=== PATIENT | female | born 1995 | race Caucasian/White ===

== ENCOUNTER 2017-10-07 11:59 | Emergency (ER) | payer OTHER, SELFPAY ==
[2017-10-07 12:21] VITALS: BP 149/85; PULSE 80; RESP 18; TEMP 36.6; O2SAT 100; BMI 40.9
--- NOTE | 2017-10-07 12:23 | XR_ITS ---
XR forearm RT 2V COMPARISON: None HISTORY: Right forearm pain after falling on ice TECHNIQUE: AP and lateral view FINDINGS: The radius and ulna appear intact with no evidence of fracture. The soft tissues are normal. IMPRESSION: Negative right forearm
--- NOTE | 2017-10-07 12:25 | XR_ITS ---
XR wrist RT min 3V COMPARISON: Right hand 08/28/2008 HISTORY: Right wrist pain after falling on I TECHNIQUE: AP lateral and oblique views FINDINGS: The distal radius and ulna appear intact with no evidence of recent or old fracture. There is a slightly negative ulnar variance a normal variation. The carpal bones appear intact. The soft tissues are normal. IMPRESSION: Right wrist negative for fracture
--- NOTE | 2017-10-07 12:26 | XR_ITS ---
XR elbow RT min 3V COMPARISON: None HISTORY: Right elbow pain after falling on TECHNIQUE: 3 views right elbow FINDINGS: The supracondylar humerus appears normal. The radial head is intact and the olecranon fossa appears normal. Is no abnormal fat pad sign. IMPRESSION: Negative right elbow
--- NOTE | 2017-10-07 12:59 | HMH.EDUTC ---
[facility] [place]ression: Sprain of right elbow Qualifiers: Encounter type: initial encounter Qualified Code(s): S53.401A - Unspecified sprain of right elbow, initial encounter Disposition: Home, Self-Care Condition on Discharge: Good Instructions: DI for Elbow Sprain, How To Perform RICE (Rest, Ice, Compress, Elevate), How to Use a Sling Additional Instructions: * use as tolerated. If pain, stop what you are doing. * Rest * ice 15-20 mins 3-4 times a day * Sling for support and swelling unless in shower. Be sure not too tight but not too loose either * Elevate as discussed as much as possible to help reduce swelling and therefore, pain * Ibuprofen every 6 hours as needed for pain and inflammation. If you need something more, you can take tylenol every 4 hours as needed as long as your primary care provider has told you it is ok to take both. Be sure whatever you take is an approved medication s/p your surgery. if they told you gelcaps. Advil gelcaps would help pain and inflammation Referrals: Vishal Hay MD [Family Provider] - (Follow up IMMEDIATELY for new or worsening symptoms OR no noticeable improvement over the next 3-5 days) Time of Disposition: 13:52 Medical Decision Making Vital Signs: 10/07/17 12:21 Temperature 97.9 F Temperature Source Oral Pulse Rate [Left Brachial] 80 Respiratory Rate 18 Blood Pressure [Left Arm] 149/85 Blood Pressure Mean [Left Arm] 106 Blood Pressure Source [Left Arm] Automatic Cuff Blood Pressure Position [Left Arm] Sitting 02 Sat by Pulse Oximetry 100 Oxygen Delivery Method Room Air - Radiology Data #1 Image(s): Elbow, Forearm, Wrist Image Reviewed: Yes I reviewed the patient's radiology image, Yes I have reviewed radiologist's interpretation, Yes I reviewed the patient's radiology image w/the ED provider Preliminary Findings: Normal/NAD (Discussed w/ Dr. Langston) - Asher Inquiry Pt receiving controlled substance: No [facility] [place] - General Stated complaint: AO fell injury to right arm Time Seen by Provider: 10/07/17 12:30 Mode of Arrival: Ambulatory Source of Information: Patient Limitations: No Limitations Description of Symptoms (Recalled from Triage Doc. by RN): pt c/o rt forearm pain following a fall HEENT Symptoms (Recalled from RN notes): No Resp Symptoms (Recalled from RN notes): No Skin Symptoms (Recalled from RN notes): No MS Symptoms (Recalled from RN notes): Yes (rt arm pain) Functional Status (Recalled from RN notes): n/a - History of Present Illness Provider Complaint: c/o pain right arm since falling on ice this morning. States she caught herself w/ right palm down on the ground and felt something pop near elbow. Pain the worse in proximal FA but radiating to elbow and down to wrist. Worse with movement. Hasn't taken or tried anything for pain since fall d/t hx gastric bypass months ago and can only take certain medication and certain types of pills. I don't want to risk messing my stomach up so I tough it out . Declines offer to treat pain here in [facility] - Related Data Allergies Allergy/AdvReac Type Severity Reaction Status Date / Time povidone-iodine Allergy Unknown Verified 10/07/17 12:30 [From BETADINE] procaine [From NOVOCAIN] Allergy Unknown Verified 10/07/17 12:30 lidocaine Allergy Verified 10/07/17 12:30 - Worker's Comp Is this a Worker's Comp case?: No [facility] History I have reviewed the patient's past medical history: Yes Medical History: Reports:: Gastroesophageal Reflux Disease Denies:: Cancer, Diabetes Mellitus Type 1, Diabetes Mellitus Type 2, Hypertension, MRSA Other Surgeries: Yes: Other (gastric bypass 07/2017) Amputation: No Fractures: No - *Social History Smoking Status: Never smoker Alcohol Intake: never - Psychiatric History Expresses thoughts of harming self/others: None Suicide Plan Description: No Plan ROS Obtained: Yes Systems reviewed as appropriate & no additional complaints - Cardiov
--- NOTE | 2017-10-07 13:03 | ED_ITS ---
[facility] [place]: Sprain of right elbow Qualifiers: Encounter type: initial encounter Qualified Code(s): S53.401A - Unspecified sprain of right elbow, initial encounter Disposition: Home, Self-Care Condition on Discharge: Good Instructions: DI for Elbow Sprain, How To Perform RICE (Rest, Ice, Compress, Elevate), How to Use a Sling Additional Instructions: * use as tolerated. If pain, stop what you are doing. * Rest * ice 15-20 mins 3-4 times a day * Sling for support and swelling unless in shower. Be sure not too tight but not too loose either * Elevate as discussed as much as possible to help reduce swelling and therefore , pain * Ibuprofen every 6 hours as needed for pain and inflammation. If you need something more, you can take tylenol every 4 hours as needed as long as your primary care provider has told you it is ok to take both. Be sure whatever you take is an approved medication s/p your surgery. if they told you gelcaps. Advil gelcaps would help pain and inflammation Referrals: Vishal Hay MD [Family Provider] - (Follow up IMMEDIATELY for new or worsening symptoms OR no noticeable improvement over the next 3-5 days) Time of Disposition: 13:52 Medical Decision Making Vital Signs: 10/07/17 12:21 Temperature 97.9 F Temperature Source Oral Pulse Rate [Left Brachial] 80 Respiratory Rate 18 Blood Pressure [Left Arm] 149/85 Blood Pressure Mean [Left Arm] 106 Blood Pressure Source [Left Arm] Automatic Cuff Blood Pressure Position [Left Arm] Sitting 02 Sat by Pulse Oximetry 100 Oxygen Delivery Method Room Air - Radiology Data #1 Image(s): Elbow, Forearm, Wrist Image Reviewed: Yes I reviewed the patient's radiology image, Yes I have reviewed radiologist's interpretation, Yes I reviewed the patient's radiology image w/the ED provider Preliminary Findings: Normal/NAD (Discussed w/ Dr. Langston) - Asher Inquiry Pt receiving controlled substance: No [facility] [place] - General Stated complaint: AO fell injury to right arm Time Seen by Provider: 10/07/17 12:30 Mode of Arrival: Ambulatory Source of Information: Patient Limitations: No Limitations Description of Symptoms (Recalled from Triage Doc. by RN): pt c/o rt forearm pain following a fall HEENT Symptoms (Recalled from RN notes): No Resp Symptoms (Recalled from RN notes): No Skin Symptoms (Recalled from RN notes): No MS Symptoms (Recalled from RN notes): Yes (rt arm pain) Functional Status (Recalled from RN notes): n/a - History of Present Illness Provider Complaint: c/o pain right arm since falling on ice this morning. States she caught herself w/ right palm down on the ground and felt something pop near elbow. Pain the worse in proximal FA but radiating to elbow and down to wrist. Worse with movement. Hasn't taken or tried anything for pain since fall d/t hx gastric bypass months ago and can only take certain medication and certain types of pills. I don't want to risk messing my stomach up so I tough it out . Declines offer to treat pain here in [facility] - Related Data Allergies Allergy/AdvReac Type Severity Reaction Status Date / Time povidone-iodine Allergy Unknown Verified 10/07/17 12:30 [From BETADINE] procaine [From NOVOCAIN] Allergy Unknown Verified 10/07/17 12:30 lidocaine Allergy Verified 10/07/17 12:30 - Worker's Comp Is this a Worker's Comp case?: No [facility] History I have reviewed the patient's pas
[2017-10-07 14:21] VITALS: BP 149/85; PULSE 80; RESP 18; TEMP 36.6; O2SAT 100
== END 2017-10-07 14:23 | disposition home or self-care (01) ==
PROVIDERS: Emergency Provider Nurse Practitioner Family; Family Provider Family Medicine
DX: S53.401A Unspecified sprain of right elbow, initial encounter (principal); W00.0XXA Fall on same level due to ice and snow, initial encounter; Y93.01 Activity, walking, marching and hiking; Y92.9 Unspecified place or not applicable; Z98.84 Bariatric surgery status
CPT/HCPCS: 73080; 73090; 73110; 99203; 99283

== ENCOUNTER → 2018-01-11 08:27 | Outpatient (CLI) | payer OTHER, SELFPAY ==
[2018-01-12 11:06] LABS: Vitamin D 25 Hydroxy 38.4 ng/mL (30.0-100.0)
[2018-01-12 21:04] LABS: Parathyroid Hormone Intact 27 pg/mL (15-65)
== END ==
PROVIDERS: Visit Provider Surgery
DX: E55.9 Vitamin D deficiency, unspecified (principal)
CPT/HCPCS: 36415; 82652; 83970

== ENCOUNTER → 2018-06-11 10:20 | Outpatient (CLI) | payer OTHER, SELFPAY ==
--- NOTE | 2018-06-11 10:25 | CT_ITS ---
CT abdomen pelvis wo/w con CLINICAL INDICATION: Painless hematuria ITS.REASON: HEMATURIA ORDERING PHYSICIAN: Harris Roy MD PATIENT AGE: 23 years COMPARISON: 02/10/2015 TECHNIQUE: Axial images obtained without with contrast enhancement. Sagittal and coronal reformats. All CT scans at the facility use one or more dose reduction, viz: automated exposure control, ma/kV adjustment per patient size (including targeted exams where dose is matched to indication, i.e. head), or iterative reconstruction technique. PROCEDURE: Oral Contrast: None IV Contrast: 75 mL [id number]. FINDINGS: No acute finding in the lung bases. A 4 mm noncalcified nodules present in the left lower lobe posteriorly unchanged. Liver, gallbladder, spleen, pancreas, and adrenal glands have an unremarkable appearance. There has been interval gastric bypass with gastrojejunostomy. No renal or ureteral calculi. No renal mass. The readings are normal size shape and position. No hydronephrosis. There is mild thickening of the anterior wall the urinary bladder. This is nonspecific and had a similar appearance on 02/10/1950. No intestinal obstruction or free air. Scattered small lymph nodes are present in the mesentery's and right lower quadrant which are nonspecific. No evidence of appendicitis or diverticulitis. No pelvic mass or focal inflammatory change. Small amount fluid is present in the cul-de-sac nonspecific. The right ovarian cyst at 2 cm. No acute bony anomalies. IMPRESSION: 1. Essentially Negative CT abdomen without and with contrast. 2. No renal or ureteral calculi, hydronephrosis, or renal mass. Minimal thickening of the anterior urinary bladder wall nonspecific and unchanged and may be due to nondistention. 3. 2 cm right ovarian cyst. Minimal amount fluid in the cul-de-sac
== END ==
PROVIDERS: Family Provider Family Medicine; PCP Family Medicine; Visit Provider Urology
DX: R31.9 Hematuria, unspecified (principal)
CPT/HCPCS: 74170; Q9967

== ENCOUNTER 2019-04-18 18:35 | Outpatient (CLI) | payer OTHER, SELFPAY ==
[2019-04-18 19:02] VITALS: BMI 36.2
[2019-04-18 19:16] LABS: Microscopic, Urine URINE MICROSCOPIC (MICROSCOPIC)
[2019-04-18 19:17] LABS: Appearance,Urine CLEAR (Clear); Bilirubin,Urine Negative (Negative); Blood, Urine Negative (Negative); Color,Urine YELLOW (Yellow); Glucose,Urine (UA) Negative (Negative); Ketones,Urine 2+ (Negative); Leukocyte Esterase,Urine Negative (Negative); Nitrate,Urine Negative (Negative); PH,Urine 8.5 (5.0-8.5); Protein,Urine Negative (Negative); Specific Gravity, Urine 1.015 (1.005-1.030)
[2019-04-18 19:20] VITALS: BP 117/69; PULSE 90; RESP 18; TEMP 36.9; O2SAT 98; BMI 37.4
[2019-04-18 19:27] LABS: Amphetamine/Metha Screen,Urine Negative ng/mL (<1000); Barbiturates Screen,Urine Negative ng/mL (<200); Benzodiazepines Screen,Urine Negative ng/mL (<200); Cannabinoid Screen,Urine Negative ng/mL (<50); Cocaine Screen,Urine Negative ng/mL (<300); Methadone Screen,Urine Negative ng/mL (<300); Opiate Screen,Urine Negative ng/mL (<300); Phencyclidine Screen,Urine Negative ng/mL (<25)
[2019-04-18 19:55] LABS: Bacteria,Urine Trace /lpf; WBC,Urine Occasional #/hpf (0-3)
== END 2019-04-18 21:15 | disposition home or self-care (01) ==
LOC: OBOUT 18:37 → OB 18:38
PROVIDERS: PCP Family Medicine; Visit Provider Obstetrics & Gynecology
DX: O47.03 False labor before 37 completed weeks of gestation, third trimester (principal); Z3A.35 35 weeks gestation of pregnancy
CPT/HCPCS: 59025; 80305; 81001; 96360; 96372

== ENCOUNTER 2020-05-21 14:30 | Outpatient (CLI) | payer OTHER, SELFPAY ==
[2020-05-21 14:55] VITALS: BP 120/61; PULSE 87; RESP 18; TEMP 36.6; O2SAT 100
[2020-05-21 15:25] VITALS: BP 110/60; PULSE 84; RESP 18
== END 2020-05-21 15:40 | disposition home or self-care (01) ==
LOC: INF 14:36
PROVIDERS: Visit Provider Family Medicine
DX: O99.019 Anemia complicating pregnancy, unspecified trimester (principal)
CPT/HCPCS: 96365; J1756

== ENCOUNTER 2020-05-25 08:35 | Outpatient (CLI) | payer OTHER, SELFPAY ==
[2020-05-25 08:50] VITALS: BP 103/71; PULSE 93; RESP 18; TEMP 36.4; O2SAT 99
[2020-05-25 09:20] VITALS: BP 108/69; PULSE 91; RESP 18; O2SAT 99
[2020-05-25 09:35] VITALS: BP 111/67; PULSE 91; RESP 18; O2SAT 98
== END 2020-05-25 09:35 | disposition home or self-care (01) ==
LOC: INF 08:35
PROVIDERS: Visit Provider Family Medicine
DX: O99.019 Anemia complicating pregnancy, unspecified trimester (principal); D50.8 Other iron deficiency anemias
CPT/HCPCS: 96365; J1756

== ENCOUNTER 2020-05-28 14:00 | Outpatient (CLI) | payer OTHER, SELFPAY ==
[2020-05-28 14:35] VITALS: BP 119/88; PULSE 99; RESP 18; TEMP 36.7
[2020-05-28 15:10] VITALS: BP 127/65; PULSE 80; RESP 18
== END 2020-05-28 15:20 | disposition home or self-care (01) ==
LOC: INF 14:27
PROVIDERS: Visit Provider Family Medicine
DX: O99.011 Anemia complicating pregnancy, first trimester (principal); D50.9 Iron deficiency anemia, unspecified
CPT/HCPCS: 96365; J1756

== ENCOUNTER 2020-06-25 11:13 | Outpatient (CLI) | payer OTHER, SELFPAY ==
[2020-06-25 11:38] VITALS: BP 156/80; PULSE 104; RESP 18; TEMP 36.7; O2SAT 100; BMI 36.3
[2020-06-25 12:16] LABS: Appearance,Urine CLEAR (Clear); Bilirubin,Urine Negative (Negative); Blood, Urine Negative (Negative); Color,Urine YELLOW (Yellow); Glucose,Urine (UA) Negative (Negative); Ketones,Urine Negative (Negative); Leukocyte Esterase,Urine TRACE (Negative); Microscopic, Urine URINE MICROSCOPIC (MICROSCOPIC); Nitrate,Urine POSITIVE (Negative); PH,Urine 7.5 (5.0-8.5); Protein,Urine Negative (Negative); Specific Gravity, Urine 1.015 (1.005-1.030)
[2020-06-25 12:27] LABS: Fetal Fibronectin (Rapid) Negative (Negative)
[2020-06-25 12:29] LABS: RBC,Urine Occasional #/hpf (0-3)
[2020-06-25 12:33] LABS: Barbiturates Screen,Urine Negative ng/ml (<200); Benzodiazepines Screen,Urine Negative ng/ml (<200)
[2020-06-25 12:34] LABS: Amphetamine/Metha Screen,Urine Negative ng/ml (<1000)
[2020-06-25 12:35] LABS: Cannabinoid Screen,Urine Negative ng/ml (<50); Methadone Screen,Urine Negative ng/ml (<300)
[2020-06-25 12:36] LABS: Cocaine Screen,Urine Negative ng/ml (<300)
[2020-06-25 12:37] LABS: Opiate Screen,Urine Negative ng/ml (<300); Phencyclidine Screen,Urine Negative ng/ml (<25)
== END 2020-06-25 12:45 | disposition home or self-care (01) ==
LOC: OBOUT 11:14 → OB 11:14
PROVIDERS: PCP Family Medicine; Visit Provider Obstetrics & Gynecology
DX: O47.03 False labor before 37 completed weeks of gestation, third trimester (principal); Z3A.31 31 weeks gestation of pregnancy
CPT/HCPCS: 59025; 80305; 81001; 82731; 96360

== ENCOUNTER → 2021-04-13 08:03 | Outpatient (CLI) | payer OTHER, SELFPAY ==
[2021-04-13 08:54] LABS: Basophils # 0.1 K/mm3 (0-0.2); Basophils % 0.8 % (0.1-2.0); Eosinophils # 0.1 K/mm3 (0.0-0.4); Eosinophils % 0.9 % (0.1-12.0); Hematocrit 24.3 % (37.0-47.0); Lymphocytes # 1.4 K/mm3 (0.7-4.5); Lymphocytes % 21.5 % (10-50); Mean Corpuscular Hemoglobin 18.1 pg (27.0-31.2); Mean Corpuscular Volume 62.3 fl (81-99); Mean Platelet Volume 8.5 fl (7.4-10.4); Monocytes # 0.3 K/mm3 (0.1-1.0); Neutrophils # 4.7 K/mm3 (1.8-7.8); Neutrophils % 71.8 % (37.0-80.0); Platelet Count 258 K/mm3 (142-424); Red Cell Distribution Width 15.8 % (11.5-17.5); Reticulocyte % (Auto) 1.6 % (0.9-3.2); White Blood Count 6.5 K/mm3 (4.8-10.8)
[2021-04-13 09:15] LABS: Iron 18 ug/dL (37-170)
[2021-04-13 09:24] LABS: Total Iron Binding Capacity 485 ug/dL (265-497)
[2021-04-13 09:35] LABS: Hemoglobin 7.1 g/dL (12.2-16.2)
[2021-04-13 10:34] LABS: Vitamin B12 300 pg/mL (239-931)
[2021-04-13 10:39] LABS: Folate 5.57 ng/mL
[2021-04-15 08:06] LABS: Peripheral Smear Review Scanned Result
== END ==
PROVIDERS: Visit Provider Nurse Practitioner
DX: D64.9 Anemia, unspecified (principal)
CPT/HCPCS: 36415; 82607; 82746; 83540; 83550; 85025; 85044

== ENCOUNTER 2021-04-15 08:33 | Outpatient (CLI) | payer OTHER, SELFPAY ==
[2021-04-15 08:55] VITALS: BP 122/75; PULSE 87; RESP 18; O2SAT 100
[2021-04-15 09:15] VITALS: BP 124/73; PULSE 79; RESP 18
== END 2021-04-15 09:15 | disposition home or self-care (01) ==
LOC: INF 08:33
PROVIDERS: Visit Provider Nurse Practitioner
DX: D50.8 Other iron deficiency anemias (principal)
CPT/HCPCS: 96374; Q0138

== ENCOUNTER 2021-04-15 13:09 | Emergency (ER) | payer OTHER, SELFPAY ==
[2021-04-15] VITALS (42 sets, daily range): BP systolic 112–147; BP diastolic 68–95; PULSE 68–109; RESP 16–20; TEMP 36.7–37.2; O2SAT 97–100; BMI 33.0
--- NOTE | 2021-04-15 13:29 | HMH.EDUTC ---
[facility] [place] Clinical Impression: Hypersensitivity reaction Qualifiers: Encounter type: initial encounter Qualified Code(s): T78.40XA - Allergy, unspecified, initial encounter Disposition: Still a Patient Condition on Discharge: Fair Referrals: Vishal Hay MD [Primary Care Provider] - Medical Decision Making - Medical Records Medical records reviewed: No: I reviewed the patient's medical records. - Asher Inquiry Pt receiving controlled substance: No Vital Signs: 04/15/21 13:28 Temperature 98.1 F Temperature Source Oral Pulse Rate [Left] 102 H Respiratory Rate 20 Blood Pressure [Right Arm] 127/77 Blood Pressure Mean [Right Arm] 93 02 Sat by Pulse Oximetry 100 Medical Decision Narrative: She was transferred to the er due to her chest tightness, wheezing. She could be having an allergic reaction to the iron infusion that she had earlier this morning. [facility] [place] - General Stated complaint: soa iron transfusion 04/15 am Time Seen by Provider: 04/15/21 13:30 - History of Present Illness Provider Complaint: She states that she had an iron infusion this morning here at this hospital. After she was sent home she began having shortness of breath and chest pressure. She has a history of gastric bypass surgery and iron deficiency. She had similar iron infusions last year without having any symptoms like this. - Related Data Home Medications Medication Instructions Recorded Confirmed multivitamin 1 cap PO DAILY 06/05/18 04/15/21 Ascorbic Acid [Vitamin C] 250 mg PO DAILY 04/15/21 04/15/21 Cholecalciferol (Vitamin D3) 2,000 unit PO DAILY 04/15/21 04/15/21 [Vitamin D3 1,000 Unit Cap] Ferrous Sulfate [Ferrous Sulfate 300 mg PO DAILY 04/15/21 04/15/21 300mg/5mL [facility] [place]] Allergies Allergy/AdvReac Type Severity Reaction Status Date / Time povidone-iodine Allergy Unknown mild Verified 04/15/21 13:31 [From BETADINE] swelling procaine [From NOVOCAIN] Allergy Unknown mild Verified 04/15/21 13:31 swelling lidocaine Allergy mild Verified 04/15/21 13:31 swelling [facility] History - Hepatitis A Screen Attestation statement:: This patient has been screened for Hepatitis A risk factors. I have reviewed the patient's past medical history: Yes Medical History: Reports:: Gastroesophageal Reflux Disease(GERD) Denies:: Cancer, Diabetes Mellitus Type 1, Diabetes Mellitus Type 2, Hypertension, Internal Pacemaker, MRSA, Seizures Other Medical History: Reports: Anemia. Denies: Blood Transfusion Reaction Other Surgeries: Yes: Bariatric Surgery, Cholecystectomy, Other (WISDOM TEETH EXTRACTED X4, GASTRIC BYPASS). No: , Pacemaker Amputation: No Fractures: Yes - Social History Smoking Status: Never smoker Alcohol Intake: never Substance Use Type: denies use Occupational Status: employed Housing: house Household Members: spouse, children Family Hx:: Cancer, Diabetes, Heart Attack, Thyroid Disorder, Hypertension, Hyperlipidemia, Asthma ROS Obtained: Yes All systems reviewed & no additional complaints - Constitutional Constitutional: Denies chills, Denies fever(s) - Respiratory Respiratory: Reports as per HPI, Reports cough, Reports wheezing Physical Exam - General General appearance: alert, in no apparent distress - Head Head exam: atraumatic, normocephalic, normal inspection - Eye Eye exam: Present: normal appearance, PERRL, EOMI - ENT ENT exam: Present: normal exam, normal oropharynx, mucous membranes moist, TM's normal bilaterally, normal external ear exam - Neck Neck exam: Present: normal inspection, full ROM, trachea midline. Absent: meningismus, lymphadenopathy - Chest Chest inspection: Present: normal inspection, symmetric chest wall rise. Absent: tenderness - Respiratory Respiratory exam: Present: wheezes. Absent: respiratory distress, stridor, accessory muscle use, prolonged expiratory phase - Cardiovascular Cardiovascular exam: Present: reg
--- NOTE | 2021-04-15 13:41 | ECG_ITS ---
APPROVED REPORT Exam: Resting ECG HR:99 bpm ECG Measurements Heart Rate 99 AXES MA 118 P 49 QRSd 72 QRS 19 QT 342 T 11 QTc 438 Conclusion Normal sinus rhythm Normal ECG Electronically signed by : Santi Aldana, 04/17/2021 15:24:17
--- NOTE | 2021-04-15 13:43 | XR_ITS ---
PROCEDURE: XR CHEST PORTABLE CLINICAL HISTORY: cough COMPARISON: CR CXR CHEST(2 VIEWS-NOT PORTABLE) from 07/19/2013 CR CXR CHEST(2 VIEWS-NOT PORTABLE) from 01/18/2016 CR Chest from 04/18/2019 FINDINGS: The cardiomediastinal silhouette and pulmonary vascularity are within normal limits. The lungs are clear without infiltrates, suspicious nodules, or pleural effusions. No acute bony abnormalities. IMPRESSION: No acute findings. Dictated by: Mady Guevara 04/15/2021 14:03 Mady Guevara in OV 04/15/2021 14:03
[2021-04-15 14:09] LABS: Alanine Aminotransferase 16 U/L (12-78); Albumin Level 4.1 g/dl (3.5-5.0); Albumin/Globulin Ratio 1.4 (1.1-1.8); Alkaline Phosphatase 106 U/L (38-126); Aspartate Amino Transferase 20 U/L (14-36); Bilirubin,Total 1.2 mg/dl (0.2-1.3); Blood Urea Nitrogen 7 mg/dl (7-17); Calcium 9.2 mg/dl (8.4-10.2); Carbon Dioxide 23 mmol/L (22.0-30.0); Chloride 108 mmol/L (98-107); Creatinine Clearance Estimated 221 mL/min (50-200); Estimated Glomerular Filt Rate 149 ml/min (>60); GFR (African American) 180 ML/MIN (>60); Glucose 85 mg/dl (74-100); Sodium 142 mmol/L (136-145); Total Protein,Serum 7.1 g/dl (6.3-8.2)
[2021-04-15 14:12] LABS: Basophils % 0.6 % (0.1-2.0); Eosinophils # 0.1 K/mm3 (0.0-0.4); Eosinophils % 0.9 % (0.1-12.0); Hematocrit 24.2 % (37.0-47.0); Lymphocytes # 1.4 K/mm3 (0.7-4.5); Lymphocytes % 23.7 % (10-50); Mean Corpuscular HGB Conc 29.1 g/dL (31.8-35.4); Mean Corpuscular Hemoglobin 18.2 pg (27.0-31.2); Mean Corpuscular Volume 62.4 fl (81-99); Mean Platelet Volume 8.6 fl (7.4-10.4); Monocytes # 0.4 K/mm3 (0.1-1.0); Monocytes % 5.9 % (1.7-9.3); Neutrophils # 4.2 K/mm3 (1.8-7.8); Platelet Count 206 K/mm3 (142-424); Red Blood Count 3.88 M/mm3 (4.20-5.40); Red Cell Distribution Width 15.8 % (11.5-17.5); White Blood Count 6.1 K/mm3 (4.8-10.8)
[2021-04-15 14:27] LABS: NT Pro Brain Natriuretic Pep. 159 pg/mL (0-125)
[2021-04-15 14:29] LABS: Troponin I < 0.01 ng/ml (0.00-0.034)
--- NOTE | 2021-04-15 19:02 | PC.NURSE ---
Report given to nailing machine feeder nurse Daryl Brito RN. Blood is continuing to transfuse. PT denies any issues at this time.
--- NOTE | 2021-04-15 20:39 | PC.NURSE ---
send post H&H up to lab @ this time
[2021-04-15 21:26] LABS: Hematocrit 30.1 % (37.0-47.0); Hemoglobin 9.3 g/dL (12.2-16.2)
== END 2021-04-15 21:38 | disposition home or self-care (01) ==
LOC: UTC 13:36 → ER 13:39
PROVIDERS: Emergency Provider Emergency Medicine; PCP Family Medicine
DX: T78.40XA Allergy, unspecified, initial encounter (principal); R06.02 Shortness of breath; D50.9 Iron deficiency anemia, unspecified; Z98.84 Bariatric surgery status; K21.9 Gastro-esophageal reflux disease without esophagitis
CPT/HCPCS: 36415; 71045; 80053; 83880; 84484; 85014; 85018; 85025; 86850; 93005; 96365; 96366; 96375; 99283; P9016

== ENCOUNTER → 2021-09-01 20:58 | Outpatient (CLI) | payer OTHER, SELFPAY | PROVIDERS: PCP Family Medicine; Visit Provider Nurse Practitioner | DX: U07.1 COVID-19 (principal) | CPT/HCPCS: C9803; U0003; U0005 ==

== ENCOUNTER → 2021-10-20 10:29 | Outpatient (CLI) | payer OTHER, SELFPAY ==
[2021-10-20 12:18] LABS: HCG,Quantitative 437 mIU/ml (0-5.42)
== END ==
PROVIDERS: PCP Family Medicine; Visit Provider Nurse Practitioner Obstetrics & Gynecology
DX: Z34.90 Encounter for supervision of normal pregnancy, unspecified, unspecified trimester (principal); Z3A.01 Less than 8 weeks gestation of pregnancy
CPT/HCPCS: 36415; 84702

== ENCOUNTER → 2021-10-22 08:47 | Outpatient (CLI) | payer OTHER, SELFPAY ==
[2021-10-22 10:12] LABS: HCG,Quantitative 832 mIU/ml (0-5.42)
== END ==
PROVIDERS: Visit Provider Nurse Practitioner Obstetrics & Gynecology
DX: Z34.90 Encounter for supervision of normal pregnancy, unspecified, unspecified trimester (principal); Z3A.01 Less than 8 weeks gestation of pregnancy
CPT/HCPCS: 36415; 84702

== ENCOUNTER → 2021-10-25 08:41 | Outpatient (CLI) | payer OTHER, SELFPAY ==
[2021-10-25 09:56] LABS: HCG,Quantitative 2453 mIU/ml (0-5.42)
== END ==
PROVIDERS: PCP Nurse Practitioner; Visit Provider Nurse Practitioner Obstetrics & Gynecology
DX: O20.0 Threatened abortion (principal)
CPT/HCPCS: 36415; 84702

== ENCOUNTER → 2021-10-26 10:19 | Outpatient (CLI) | payer OTHER, SELFPAY ==
[2021-10-26 11:28] LABS: Basophils % 0.7 % (0.1-2.0); Eosinophils # 0.1 K/mm3 (0.0-0.4); Eosinophils % 0.9 % (0.1-12.0); Hematocrit 31.7 % (37.0-47.0); Lymphocytes # 1.5 K/mm3 (0.7-4.5); Lymphocytes % 25.2 % (10-50); Mean Corpuscular HGB Conc 31.5 g/dL (31.8-35.4); Mean Corpuscular Hemoglobin 22.8 pg (27.0-31.2); Mean Corpuscular Volume 72.4 fl (81-99); Mean Platelet Volume 9.5 fl (7.4-10.4); Monocytes # 0.4 K/mm3 (0.1-1.0); Monocytes % 5.9 % (1.7-9.3); Neutrophils % 67.2 % (37.0-80.0); Platelet Count 304 K/mm3 (142-424); Red Blood Count 4.38 M/mm3 (4.20-5.40)
[2021-10-27 10:12] LABS: Rapid Plasma Reagin Ab Titer Non Reactive (NonRea<1:1)
[2021-10-27 11:11] LABS: HIV Screen 4th Generation wRfx Non Reactive (Non Reactive)
[2021-10-27 12:21] LABS: Progesterone 16.7 ng/mL (.)
[2021-10-28 06:11] LABS: HSV 2 IgG, Type Spec <0.91 index (0.00-0.90); Rubella Antibodies, IgG 2.29 index (Immune >0.99)
[2021-10-28 08:15] LABS: Hepatitis B Surface Antigen Negative (Negative); Hepatitis C Antibody <0.1 s/co ratio (0.0-0.9)
== END ==
PROVIDERS: PCP Nurse Practitioner; Visit Provider Nurse Practitioner Obstetrics & Gynecology
DX: Z34.90 Encounter for supervision of normal pregnancy, unspecified, unspecified trimester (principal); Z3A.01 Less than 8 weeks gestation of pregnancy
CPT/HCPCS: 36415; 84144; 85025; 86592; 86695; 86703; 86762; 86790; 86850; 87340; 87380; G0432

== ENCOUNTER → 2021-12-16 12:57 | Outpatient (CLI) | payer OTHER, SELFPAY ==
--- NOTE | 2021-12-16 13:02 | US_ITS ---
FINAL REPORT CLINICAL HISTORY: abnormal vaginal bleeding in FINDINGS: Sonographic images of the pelvis were obtained. A single, living intrauterine is noted. Bunn to rump length measures 6.7 cm which corresponds to 13 weeks 0 days gestation. Heartbeat is identified and measures 163 beats per minute. activity is noted. The placenta is posterior and close to the cervix but no previa is noted at this time. IMPRESSION: Single, living, intrauterine gestation with 12 weeks 6 days gestational age. Reviewed, Interpreted and Dictated by Temo Smart MD Transcribed by Vandana Marquez Authenticated by Temo Smart MD on 12/16/2021 03:00:54 PM [facility]
== END ==
PROVIDERS: PCP Nurse Practitioner; Visit Provider Nurse Practitioner Obstetrics & Gynecology
DX: O20.9 Hemorrhage in early pregnancy, unspecified (principal)
CPT/HCPCS: 36415; 76801

== ENCOUNTER → 2022-02-08 14:35 | Outpatient (CLI) | payer OTHER, SELFPAY ==
--- NOTE | 2022-02-08 14:36 | US_ITS ---
FINAL REPORT CLINICAL HISTORY: 20 weeks gestation FINDINGS: There is a single live intrauterine gestation. Presentation is cephalic. The cervix is closed and measures 4.8 cm. Placenta is posterior, grade 1. movement is noted. Heart rate is identified at 152 beats per minute. Three-vessel cord with satisfactory umbilical cord insertion. Four-chamber heart is noted. ABDOMEN: Both kidneys are unremarkable. SPINE: No anomalies identified. AMNIOTIC FLUID: Appropriate amount. MEASUREMENTS: ULTRASOUND AGE: 20 weeks 5 days. GESTATION AGE: 20 weeks 5 days. ESTIMATED WEIGHT: 372 g GROWTH PERCENTILE: 45 % BPD: 4.89 cm consistent with 20 weeks 6 days. OFD: 6.31 cm consistent with 21 weeks 1 day. HC: 17.73 cm consistent with 20 week days. AC: 15.54 cm consistent with 20 weeks 5 days. FL: 3.44 cm consistent with 20 weeks 6 days. HC/AC: 1.14 CI: 77% FL/BPD: 70% FL/AC: 22% IMPRESSION: Single living IUP with an ultrasound age of 20 weeks 5 days. Reviewed, Interpreted and Dictated by Romero Calhoun III, MD Transcribed by Marguerite Starr Authenticated by Romero Calhoun III, MD on 02/08/2022 04:30:[address] [facility]
== END ==
PROVIDERS: PCP Nurse Practitioner Obstetrics & Gynecology; Visit Provider Nurse Practitioner Obstetrics & Gynecology
DX: Z36.0 Encounter for antenatal screening for chromosomal anomalies (principal); Z3A.20 20 weeks gestation of pregnancy
CPT/HCPCS: 76811

== ENCOUNTER 2022-03-04 10:57 | Outpatient (CLI) | payer OTHER, SELFPAY ==
[2022-03-04 11:18] VITALS: BP 130/77; PULSE 98; RESP 18; TEMP 36.6; O2SAT 98; BMI 33.6; BMI 33.7
[2022-03-04 11:25] LABS: Microscopic, Urine URINE MICROSCOPIC (MICROSCOPIC)
[2022-03-04 11:29] LABS: Appearance,Urine SL CLOUDY (Clear); Bilirubin,Urine Negative (Negative); Blood, Urine Negative (Negative); Color,Urine YELLOW (Yellow); Glucose,Urine (UA) Negative (Negative); Ketones,Urine Negative (Negative); Leukocyte Esterase,Urine 1+ (Negative); Nitrate,Urine Negative (Negative); Protein,Urine TRACE (Negative); Specific Gravity, Urine >= 1.030 (1.005-1.030)
[2022-03-04 11:38] LABS: Bacteria,Urine 1+ /lpf
[2022-03-04 11:40] LABS: Barbiturates Screen,Urine Negative ng/ml (<200); Benzodiazepines Screen,Urine Negative ng/ml (<200)
[2022-03-04 11:41] LABS: Amphetamine/Metha Screen,Urine Negative ng/ml (<1000)
[2022-03-04 11:42] LABS: Cannabinoid Screen,Urine Negative ng/ml (<50); Methadone Screen,Urine Negative ng/ml (<300)
[2022-03-04 11:43] LABS: Cocaine Screen,Urine Negative ng/ml (<300)
[2022-03-04 11:44] LABS: Opiate Screen,Urine Negative ng/ml (<300); Phencyclidine Screen,Urine Negative ng/ml (<25)
== END 2022-03-04 15:00 | disposition home or self-care (01) ==
LOC: OBOUT 11:00 → OB 11:02
PROVIDERS: PCP Internal Medicine Adolescent Medicine; Visit Provider Nurse Practitioner Obstetrics & Gynecology
DX: O26.892 Other specified pregnancy related conditions, second trimester (principal); Z3A.24 24 weeks gestation of pregnancy; W19.XXXA Unspecified fall, initial encounter
CPT/HCPCS: 59025; 80305; 81001; 87086; G0463

== ENCOUNTER → 2022-03-29 16:43 | Outpatient (CLI) | payer OTHER, SELFPAY ==
[2022-03-29 19:08] LABS: Vitamin B12 204 pg/mL (239-931)
[2022-03-29 19:16] LABS: Folate 5.35 ng/mL
[2022-03-29 19:55] LABS: Basophils % 0.4 % (0.1-2.0); Eosinophils # 0.1 K/mm3 (0.0-0.4); Eosinophils % 0.8 % (0.1-12.0); Hematocrit 26.7 % (37.0-47.0); Lymphocytes # 1.7 K/mm3 (0.7-4.5); Lymphocytes % 15.9 % (10-50); Mean Corpuscular HGB Conc 29.9 g/dL (31.8-35.4); Mean Corpuscular Hemoglobin 20.6 pg (27.0-31.2); Mean Corpuscular Volume 68.9 fl (81-99); Mean Platelet Volume 8.3 fl (7.4-10.4); Monocytes # 0.7 K/mm3 (0.1-1.0); Monocytes % 6.1 % (1.7-9.3); Neutrophils # 8.1 K/mm3 (1.8-7.8); Neutrophils % 76.8 % (37.0-80.0); Platelet Count 306 K/mm3 (142-424); Red Blood Count 3.87 M/mm3 (4.20-5.40); Red Cell Distribution Width 16.7 % (11.5-17.5); White Blood Count 10.5 K/mm3 (4.8-10.8)
[2022-03-29 21:12] LABS: Iron 18 ug/dL (37-170)
[2022-03-29 21:22] LABS: Total Iron Binding Capacity 471 ug/dL (265-497)
[2022-03-29 21:47] LABS: Ferritin 4.44 ng/ml (6.24-137)
[2022-03-31 12:11] LABS: Transferrin 437 mg/dL (192-364)
== END ==
PROVIDERS: PCP Internal Medicine Adolescent Medicine; Visit Provider Obstetrics & Gynecology
DX: Z34.90 Encounter for supervision of normal pregnancy, unspecified, unspecified trimester (principal)
CPT/HCPCS: 82607; 82728; 82746; 83540; 83550; 84466; 85025

== ENCOUNTER → 2022-04-02 07:58 | Outpatient (CLI) | payer OTHER, SELFPAY ==
[2022-04-02 09:22] LABS: Glucose,Fasting 78 mg/dl (74-100)
[2022-04-02 10:26] LABS: Glucose 1 Hour 140 mg/dL (74-100)
== END ==
PROVIDERS: PCP Internal Medicine Adolescent Medicine; Visit Provider Nurse Practitioner Obstetrics & Gynecology
DX: Z34.90 Encounter for supervision of normal pregnancy, unspecified, unspecified trimester (principal)
CPT/HCPCS: 36415; 82951

== ENCOUNTER → 2022-04-09 08:07 | Outpatient (CLI) | payer OTHER, SELFPAY ==
[2022-04-09 08:32] LABS: Glucose,Fasting 82 mg/dl (74-100)
[2022-04-09 09:47] LABS: Glucose 1 Hour 152 mg/dL (74-100)
[2022-04-09 10:56] LABS: Glucose 2 Hour 73 mg/dL (74-100)
[2022-04-09 12:29] LABS: Glucose 3 Hour 78 mg/dL (74-100)
== END ==
PROVIDERS: PCP Internal Medicine Adolescent Medicine; Visit Provider Nurse Practitioner Obstetrics & Gynecology
DX: Z34.90 Encounter for supervision of normal pregnancy, unspecified, unspecified trimester (principal)
CPT/HCPCS: 36415; 82951

== ENCOUNTER 2022-04-12 17:16 | Outpatient (CLI) | payer OTHER, SELFPAY ==
[2022-04-12 17:37] VITALS: BMI 33.6
[2022-04-12 17:39] VITALS: BMI 33.3
[2022-04-12 17:52] LABS: Microscopic, Urine URINE MICROSCOPIC (MICROSCOPIC)
[2022-04-12 18:09] LABS: Appearance,Urine CLEAR (Clear); Blood, Urine Negative (Negative); Color,Urine YELLOW (Yellow); Glucose,Urine (UA) Negative (Negative); Ketones,Urine Negative (Negative); Leukocyte Esterase,Urine Negative (Negative); Nitrate,Urine Negative (Negative); Protein,Urine Negative (Negative); Specific Gravity, Urine >= 1.030 (1.005-1.030)
[2022-04-12 18:14] LABS: Bilirubin,Urine 1+ (Negative)
[2022-04-12 18:17] LABS: Amphetamine/Metha Screen,Urine Negative ng/ml (<1000)
[2022-04-12 18:18] LABS: Barbiturates Screen,Urine Negative ng/ml (<200)
[2022-04-12 18:19] LABS: Benzodiazepines Screen,Urine Negative ng/ml (<200); Cannabinoid Screen,Urine Negative ng/ml (<50)
[2022-04-12 18:20] LABS: Cocaine Screen,Urine Negative ng/ml (<300)
[2022-04-12 18:21] LABS: Methadone Screen,Urine Negative ng/ml (<300); Opiate Screen,Urine Negative ng/ml (<300)
[2022-04-12 18:22] LABS: Phencyclidine Screen,Urine Negative ng/ml (<25)
[2022-04-12 19:41] LABS: RBC,Urine Occasional #/hpf (0-3)
== END 2022-04-12 21:30 | disposition home or self-care (01) ==
LOC: OBOUT 17:18 → OB 17:19
PROVIDERS: PCP Nurse Practitioner Obstetrics & Gynecology; Visit Provider Nurse Practitioner Obstetrics & Gynecology
DX: O47.03 False labor before 37 completed weeks of gestation, third trimester (principal); Z3A.29 29 weeks gestation of pregnancy
CPT/HCPCS: 59025; 80305; 81001; 96365; 96372; G0463

== ENCOUNTER 2022-04-13 09:19 | Outpatient (CLI) | payer OTHER, SELFPAY ==
[2022-04-13 11:11] VITALS: BMI 33.6
[2022-04-13 11:14] VITALS: BMI 33.6
[2022-04-13 11:25] LABS: Fetal Fibronectin (Rapid) Negative (Negative); Fetal Membrane Rupture (Rapid) Negative (Negative)
--- NOTE | 2022-04-13 11:55 | P.PN_ITS ---
Internal Medicine - PN: Subj *Date: 04/13/22 *Time: 11:55 Interval history: She is returning today with labor. She has regular contractions. She is 29 weeks gestational age. She has had labor and a previous . She was seen last night and did receive her first dose of steroids. She received Brethine as well as a fluid bolus last night. We will see how she does with nifedipine today. Exam Vital signs and Labs for Last 24 Hours: Laboratory Results - last 24 hr 04/13/22 10:21: Membrane Rupture Negative 04/13/22 10:21: Fibronectin Negative I & O for Last 24 hours: Intake & Output 04/10/22 04/11/22 04/12/22 04/13/22 11:59 11:59 11:59 11:59 Weight 184 lb - Constitutional no acute distress Assessment and Plan (1) labor Status: Acute Category: Medical Code(s): O60.00 - labor without delivery, unspecified trimester - Assessment and plan all Dx Assessment and Plan for all problems:: She is just being observed at this point in time. We have given her a dose of nifedipine. She we will get her second dose of steroids today. We will follow- up in the office next week. We will send her home with nifedipine to take up to 4 times daily.
== END 2022-04-13 17:35 | disposition home or self-care (01) ==
LOC: OBOUT 09:21 → OB 09:23
PROVIDERS: PCP Internal Medicine Adolescent Medicine; Visit Provider Nurse Practitioner Obstetrics & Gynecology
DX: O26.893 Other specified pregnancy related conditions, third trimester (principal); Z3A.29 29 weeks gestation of pregnancy; O47.00 False labor before 37 completed weeks of gestation, unspecified trimester
CPT/HCPCS: 59025; 82731; 84112; 96365; 96372; G0463

== ENCOUNTER 2022-04-19 20:19 | Outpatient (CLI) | payer OTHER, SELFPAY ==
[2022-04-19 20:50] VITALS: BMI 33.6
[2022-04-19 20:55] LABS: Microscopic, Urine URINE MICROSCOPIC (MICROSCOPIC)
[2022-04-19 21:04] VITALS: BP 125/79; PULSE 117; RESP 20; TEMP 36.8; O2SAT 98; BMI 33.6
[2022-04-19 21:04] LABS: Appearance,Urine SL CLOUDY (Clear); Bilirubin,Urine Negative (Negative); Blood, Urine Negative (Negative); Color,Urine YELLOW (Yellow); Glucose,Urine (UA) Negative (Negative); Ketones,Urine Negative (Negative); Leukocyte Esterase,Urine 1+ (Negative); Nitrate,Urine Negative (Negative); Protein,Urine Negative (Negative); Specific Gravity, Urine >= 1.030 (1.005-1.030); Urobilinogen,Urine 0.2 EU/dl (0.2)
[2022-04-19 21:11] LABS: Bacteria,Urine 2+ /lpf; Calcium Oxalate Crystals,Urine 1+ /lpf
[2022-04-19 21:15] LABS: Amphetamine/Metha Screen,Urine Negative ng/ml (<1000)
[2022-04-19 21:16] LABS: Barbiturates Screen,Urine Negative ng/ml (<200); Benzodiazepines Screen,Urine Negative ng/ml (<200)
[2022-04-19 21:17] LABS: Cannabinoid Screen,Urine Negative ng/ml (<50)
[2022-04-19 21:18] LABS: Cocaine Screen,Urine Negative ng/ml (<300); Methadone Screen,Urine Negative ng/ml (<300)
[2022-04-19 21:19] LABS: Opiate Screen,Urine Negative ng/ml (<300)
[2022-04-19 21:20] LABS: Phencyclidine Screen,Urine Negative ng/ml (<25)
== END 2022-04-19 22:52 | disposition home or self-care (01) ==
LOC: OBOUT 20:22 → OB 20:23
PROVIDERS: PCP Nurse Practitioner Obstetrics & Gynecology; Visit Provider Obstetrics & Gynecology
DX: O47.03 False labor before 37 completed weeks of gestation, third trimester (principal); Z3A.30 30 weeks gestation of pregnancy
CPT/HCPCS: 59025; 80305; 81001; 87086; 96365; 96366; G0463

== ENCOUNTER → 2022-04-26 16:14 | Outpatient (CLI) | payer OTHER, SELFPAY ==
[2022-04-26 12:37] LABS: Fetal Fibronectin (Rapid) Negative (Negative)
== END ==
PROVIDERS: Visit Provider Nurse Practitioner Obstetrics & Gynecology
DX: Z34.90 Encounter for supervision of normal pregnancy, unspecified, unspecified trimester (principal)
CPT/HCPCS: 82731

== ENCOUNTER → 2022-05-02 13:48 | Outpatient (CLI) | payer OTHER, SELFPAY ==
--- NOTE | 2022-05-02 13:48 | US_ITS ---
FINAL REPORT CLINICAL HISTORY: sga FINDINGS: There is a single live intrauterine gestation. Presentation is cephalic. The cervix is closed and measures 4.1 cm. Placenta is posterior and grade 2. Cardiac activity is confirmed at 136 bpm. Fetus is active. Three-vessel cord with satisfactory umbilical cord insertion. Four-chamber heart is noted. brain and ventricles are unremarkable. Chest and diaphragm are unremarkable. ABDOMEN: Both kidneys are unremarkable. Stomach is unremarkable. SPINE: No anomalies identified. Both arms and legs noted. JD: 11.59 cm MEASUREMENTS: ULTRASOUND AGE: 31 weeks 0 days. GESTATION AGE: 32 weeks 4 days. ESTIMATED WEIGHT: 1647 g GROWTH PERCENTILE: 5% BPD: 7.8 cm consistent with 31 weeks 1 days. OFD: 10.2 cm consistent with 31 weeks 5 days. HC: 28.5 cm consistent with 31 weeks 2 days. AC: 27.1 cm consistent with 31 weeks 2 days. FL: 5.7 cm consistent with 30 weeks 1 days. HC/AC: 1.05 CI: 76% FL/BPD: 74% FL/AC: 21% BREATHIN MOVEMENT: 2 TONE: 2 FLUID VOLUME: 2 BPP SCORE: 8/8 IMPRESSION: Single living IUP with an ultrasound age of 31 weeks 0 days. BPP SCORE: 8/8 Reviewed, Interpreted and Dictated by Romero Calhoun III, MD Transcribed by Angel Rayo Authenticated and [facility]
== END ==
PROVIDERS: PCP Internal Medicine Adolescent Medicine; Visit Provider Obstetrics & Gynecology
DX: O36.5990 Maternal care for other known or suspected poor fetal growth, unspecified trimester, not applicable or unspecified (principal)
CPT/HCPCS: 76816; 76819

== ENCOUNTER 2022-05-05 09:01 | Outpatient (CLI) | payer OTHER, SELFPAY ==
[2022-05-05 09:16] VITALS: BMI 33.3
[2022-05-05 09:47] VITALS: BP 125/83; PULSE 101; RESP 19; TEMP 36.8; O2SAT 100; BMI 33.3
[2022-05-05 10:05] LABS: Microscopic, Urine URINE MICROSCOPIC (MICROSCOPIC)
[2022-05-05 10:11] LABS: Appearance,Urine CLOUDY (Clear); Blood, Urine Negative (Negative); Color,Urine DK YELLOW (Yellow); Glucose,Urine (UA) Negative (Negative); Ketones,Urine Negative (Negative); Leukocyte Esterase,Urine TRACE (Negative); Nitrate,Urine Negative (Negative); Protein,Urine TRACE (Negative); Specific Gravity, Urine >= 1.030 (1.005-1.030)
[2022-05-05 10:16] LABS: Fetal Membrane Rupture (Rapid) Negative (Negative)
[2022-05-05 10:17] LABS: Basophils # 0.1 K/mm3 (0-0.2); Basophils % 0.5 % (0.1-2.0); Eosinophils % 0.4 % (0.1-12.0); Hematocrit 27.8 % (37.0-47.0); Hemoglobin 8.3 g/dL (12.2-16.2); Lymphocytes # 1.4 K/mm3 (0.7-4.5); Lymphocytes % 11.7 % (10-50); Mean Corpuscular Volume 66.8 fl (81-99); Mean Platelet Volume 7.5 fl (7.4-10.4); Monocytes # 0.5 K/mm3 (0.1-1.0); Monocytes % 4.3 % (1.7-9.3); Neutrophils # 9.6 K/mm3 (1.8-7.8); Neutrophils % 83.1 % (37.0-80.0); Platelet Count 339 K/mm3 (142-424); Red Blood Count 4.17 M/mm3 (4.20-5.40); Red Cell Distribution Width 17.2 % (11.5-17.5); White Blood Count 11.6 K/mm3 (4.8-10.8)
[2022-05-05 10:22] LABS: Amphetamine/Metha Screen,Urine Negative ng/ml (<1000); Benzodiazepines Screen,Urine Negative ng/ml (<200); Bilirubin,Urine Negative (Negative)
[2022-05-05 10:23] LABS: Barbiturates Screen,Urine Negative ng/ml (<200)
[2022-05-05 10:24] LABS: Amorphous Sediment,Urine Trace /lpf; Bacteria,Urine 3+ /lpf; Mucus,Urine 2+ /lpf
[2022-05-05 10:25] LABS: Cannabinoid Screen,Urine Negative ng/ml (<50)
[2022-05-05 10:26] LABS: Cocaine Screen,Urine Negative ng/ml (<300)
[2022-05-05 10:27] LABS: Methadone Screen,Urine Negative ng/ml (<300); Opiate Screen,Urine Negative ng/ml (<300)
[2022-05-05 10:28] LABS: Phencyclidine Screen,Urine Negative ng/ml (<25)
[2022-05-05 10:40] LABS: Fetal Fibronectin (Rapid) Negative (Negative)
== END 2022-05-05 13:38 | disposition home or self-care (01) ==
LOC: OBOUT 09:03 → OB 09:04
PROVIDERS: PCP Internal Medicine Adolescent Medicine; Visit Provider Nurse Practitioner Obstetrics & Gynecology
DX: O47.03 False labor before 37 completed weeks of gestation, third trimester (principal); Z3A.32 32 weeks gestation of pregnancy
CPT/HCPCS: 59025; 80305; 81001; 82731; 84112; 85025; 87086; 96365; G0463

== ENCOUNTER 2022-05-07 11:33 | Outpatient (CLI) | payer OTHER, SELFPAY ==
[2022-05-07 11:39] VITALS: BMI 33.3
[2022-05-07 11:46] LABS: Microscopic, Urine URINE MICROSCOPIC (MICROSCOPIC)
[2022-05-07 11:50] LABS: Appearance,Urine SL CLOUDY (Clear); Bilirubin,Urine Negative (Negative); Blood, Urine 1+ (Negative); Color,Urine YELLOW (Yellow); Glucose,Urine (UA) Negative (Negative); Ketones,Urine Negative (Negative); Leukocyte Esterase,Urine 2+ (Negative); Nitrate,Urine Negative (Negative); PH,Urine 6.5 (5.0-8.5); Protein,Urine Negative (Negative); Specific Gravity, Urine <= 1.005 (1.005-1.030); Urobilinogen,Urine 0.2 EU/dl (0.2)
[2022-05-07 12:02] LABS: Amphetamine/Metha Screen,Urine Negative ng/ml (<1000); Barbiturates Screen,Urine Negative ng/ml (<200)
[2022-05-07 12:03] LABS: Benzodiazepines Screen,Urine Negative ng/ml (<200); Cannabinoid Screen,Urine Negative ng/ml (<50)
[2022-05-07 12:04] LABS: Bacteria,Urine 1+ /lpf; Cocaine Screen,Urine Negative ng/ml (<300); RBC,Urine Occasional #/hpf (0-3); Squamous Epithelial Cell,Urine 20-50 #/hpf (0-5)
[2022-05-07 12:05] LABS: Methadone Screen,Urine Negative ng/ml (<300); Opiate Screen,Urine Negative ng/ml (<300)
[2022-05-07 12:06] LABS: Phencyclidine Screen,Urine Negative ng/ml (<25)
[2022-05-07 12:22] VITALS: BP 123/75; PULSE 133; RESP 20; TEMP 36.9; O2SAT 100; BMI 34.0
== END 2022-05-07 14:42 | disposition home or self-care (01) ==
LOC: OBOUT 11:34 → OB 11:35
PROVIDERS: Obstetrics & Gynecology; PCP Internal Medicine Adolescent Medicine; Visit Provider Nurse Practitioner Obstetrics & Gynecology
DX: O47.03 False labor before 37 completed weeks of gestation, third trimester (principal); O46.90 Antepartum hemorrhage, unspecified, unspecified trimester; Z3A.33 33 weeks gestation of pregnancy
CPT/HCPCS: 59025; 80305; 81001; 87086; 96365; 96366; 96367; 96372; G0463; J0696

== ENCOUNTER 2022-05-10 17:22 | Outpatient (CLI) | payer OTHER, SELFPAY ==
[2022-05-10] VITALS (10 sets, daily range): BP systolic 110–137; BP diastolic 67–79; PULSE 86–113; RESP 17–19; TEMP 36.7–36.9; O2SAT 97–100; BMI 34.4
[2022-05-10 18:33] LABS: Microscopic, Urine URINE MICROSCOPIC (MICROSCOPIC)
[2022-05-10 18:54] LABS: Basophils % 0.4 % (0.1-2.0); Eosinophils # 0.1 K/mm3 (0.0-0.4); Eosinophils % 0.8 % (0.1-12.0); Hematocrit 24.9 % (37.0-47.0); Hemoglobin 7.6 g/dL (12.2-16.2); Lymphocytes # 1.7 K/mm3 (0.7-4.5); Lymphocytes % 16.3 % (10-50); Mean Corpuscular HGB Conc 30.5 g/dL (31.8-35.4); Mean Corpuscular Hemoglobin 19.9 pg (27.0-31.2); Mean Corpuscular Volume 65.2 fl (81-99); Mean Platelet Volume 8.6 fl (7.4-10.4); Monocytes # 0.6 K/mm3 (0.1-1.0); Neutrophils # 8.1 K/mm3 (1.8-7.8); Neutrophils % 76.5 % (37.0-80.0); Platelet Count 334 K/mm3 (142-424); Red Blood Count 3.82 M/mm3 (4.20-5.40); Red Cell Distribution Width 17.2 % (11.5-17.5); White Blood Count 10.6 K/mm3 (4.8-10.8)
[2022-05-10 18:57] LABS: Appearance,Urine CLEAR (Clear); Bilirubin,Urine Negative (Negative); Blood, Urine Negative (Negative); Color,Urine YELLOW (Yellow); Glucose,Urine (UA) Negative (Negative); Ketones,Urine Negative (Negative); Leukocyte Esterase,Urine Negative (Negative); Nitrate,Urine Negative (Negative); Protein,Urine Negative (Negative); Urobilinogen,Urine 0.2 EU/dl (0.2)
[2022-05-10 19:11] LABS: Benzodiazepines Screen,Urine Negative ng/ml (<200)
[2022-05-10 19:12] LABS: Amphetamine/Metha Screen,Urine Negative ng/ml (<1000)
[2022-05-10 19:13] LABS: Barbiturates Screen,Urine Negative ng/ml (<200); Cannabinoid Screen,Urine Negative ng/ml (<50)
[2022-05-10 19:14] LABS: Cocaine Screen,Urine Negative ng/ml (<300); Methadone Screen,Urine Negative ng/ml (<300)
[2022-05-10 19:15] LABS: Opiate Screen,Urine Negative ng/ml (<300)
[2022-05-10 19:16] LABS: Phencyclidine Screen,Urine Negative ng/ml (<25)
[2022-05-10 19:22] LABS: WBC,Urine Occasional #/hpf (0-3)
[2022-05-10 19:23] LABS: Bacteria,Urine Trace /lpf; Squamous Epithelial Cell,Urine Occasional #/hpf (0-5)
[2022-05-11 00:15] VITALS: BP 123/73; PULSE 85; RESP 17; TEMP 36.7; O2SAT 98
[2022-05-11 00:32] LABS: Hematocrit 24.5 % (37.0-47.0); Hemoglobin 7.6 g/dL (12.2-16.2)
== END 2022-05-11 01:09 | disposition home or self-care (01) ==
LOC: OBOUT 17:25 → OB 17:28
PROVIDERS: PCP Nurse Practitioner Obstetrics & Gynecology; Visit Provider Nurse Practitioner Obstetrics & Gynecology
DX: O26.53 Maternal hypotension syndrome, third trimester (principal); Z3A.33 33 weeks gestation of pregnancy
CPT/HCPCS: 36415; 59025; 80305; 81001; 85014; 85018; 85025; 86850; 96365; G0463; P9016

== ENCOUNTER 2022-05-11 19:41 | Observation (INO) | payer OTHER, SELFPAY ==
[2022-05-11] VITALS (9 sets, daily range): BP systolic 102–122; BP diastolic 59–73; PULSE 84–97; RESP 16–18; TEMP 36.7–37; O2SAT 98–100; BMI 34.4
[2022-05-11 20:36] LABS: Coronavirus 19, PCR Not Detected (NotDetected); Influenza A, PCR Not Detected (NotDetected); Influenza B, PCR Not Detected (NotDetected)
[2022-05-12] VITALS (10 sets, daily range): BP systolic 105–118; BP diastolic 55–72; PULSE 74–91; RESP 17–18; TEMP 36.8–36.9; O2SAT 98–99
[2022-05-12 06:30] LABS: Hematocrit 27.8 % (37.0-47.0); Hemoglobin 8.9 g/dL (12.2-16.2)
--- NOTE | 2022-05-12 08:55 | HMH.PHAINT ---
MEDICATION RECONCILIATION COMPLETED ON PATIENT USING EXTERNAL FILL HISTORY FROM PHARMACY. -AMY MARIA, JADAD
--- NOTE | 2022-05-12 09:28 | HMH.HPDC ---
General - General Admission date:: 05/11/22 Discharge date: 05/12/22 *Admission Date: 05/11/22 *Chief complaint: Lightheadedness, low blood pressure, severe anemia *History of present illness: She is a 27-year-old 4 para 2 aborta 1 who is 33 and 6 weeks gestational age today. She has been followed through the with anemia and has had anemia in the past. She had gastric bypass and apparently has poor absorption. She has received Feraheme about a year ago when she had a severe anaphylactic reaction to this. Most recently she was seen with a hemoglobin of 7.6. She received 1 transfusion and it really did not change her hemoglobin. She came in last night feeling lightheaded and having low blood pressure at home. She received 2 units of blood overnight. Her hemoglobin this morning is 8.9. She has severe microcytic anemia. Her MCV is in the 60s. [facility] History I have reviewed the patient's past medical history: Yes Medical History: Reports:: Gastroesophageal Reflux Disease(GERD) Denies:: Cancer, Diabetes Mellitus Type 1, Diabetes Mellitus Type 2, Hypertension, Internal Pacemaker, MRSA, Seizures *Have you ever received a pneumonia vaccine?: No *Have you received a flu vaccine this season?: Yes Other Medical History: Reports: Anemia. Denies: Blood Transfusion Reaction Other Surgeries: Yes: No Previous Surgery, Bariatric Surgery, Cholecystectomy, Other (WISDOM TEETH EXTRACTED X4, GASTRIC BYPASS). 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 Review of Systems - Review of Systems Review of systems:: pertinent systems reviewed and negative unless documented below Exam Vital signs and Labs for Last 24 Hours: Temp Pulse Resp BP Pulse Ox 98.3 F 76 18 113/59 L 99 05/12/22 02:30 05/12/22 02:30 05/12/22 02:30 05/12/22 02:30 05/12/22 02:30 Laboratory Results - last 24 hr 05/11/22 20:28: SARS-CoV-2 (PCR) Not detected, Influenza A Untype (PCR) Not detected, Influenza Type B (PCR) Not detected 05/12/22 06:20: Hgb 8.9 L, Hct 27.8 L I & O for Last 24 hours: Intake & Output 05/09/22 05/10/22 05/11/22 05/12/22 11:59 11:59 11:59 11:59 Intake Total 29.63 / 29.63 Balance 29.63 / 29.63 Weight 188 lb - Constitutional no acute distress Comments: She looks pale - *Routine HEENT Exam Head: Present: normocephalic Eye: Present: EOMI, PERRL ENT: Present: mucous membranes moist - *Routine Neck Exam Present: supple, full ROM - *Routine Respiratory Exam Absent: accessory muscle use (good air entry bilaterally), wheezes, crackles - *Routine Cardiovascular Exam Present: RRR. Absent: murmur - *Routine Abdominal Exam Present: soft, normoactive bowel sounds, other. Absent: tenderness, rebound, guarding, mass Comments: Gravid uterus - *Routine Rectal Exam Rectal:: deferred - *Routine Genitalia Exam Genitalia:: deferred - *Routine Extremities Exam Present: full ROM. Absent: cyanosis, edema, calf tenderness - *Routine Skin Exam Present: intact (good color) - *Routine Neurological Exam Present: alert, oriented X3 - Routine Psychiatric Exam Present: normal affect - Detailed Rectal Exam Patient deferred: visual exam, digital exam - Detailed Exam Patient deferred: external exam, groin exam, perineal exam Hospital Course Hospital Course: She was admitted with a diagnosis of iron deficiency anemia likely secondary to poor absorption. She received 2 units of blood overnight. Her hemoglobin this morning is 8.9. She still feels lightheaded. She still looks pale. We will have her go down
== END 2022-05-12 09:55 | disposition home or self-care (01) ==
PROVIDERS: Admitting Provider Obstetrics & Gynecology; PCP Internal Medicine Adolescent Medicine; Visit Provider Obstetrics & Gynecology
DX: O99.013 Anemia complicating pregnancy, third trimester (principal); D50.9 Iron deficiency anemia, unspecified; Z3A.33 33 weeks gestation of pregnancy; Z98.84 Bariatric surgery status
CPT/HCPCS: 59025; 85014; 85018; 94761; C9803; G0283; G0378; P9016; U0003; U0005

== ENCOUNTER 2022-05-22 16:49 | Outpatient (CLI) | payer OTHER, SELFPAY ==
[2022-05-22 16:58] VITALS: BMI 34.0
[2022-05-22 18:04] VITALS: BP 126/79; PULSE 123; RESP 18; O2SAT 100; BMI 34.2
[2022-05-22 18:05] LABS: Microscopic, Urine URINE MICROSCOPIC (MICROSCOPIC)
[2022-05-22 18:11] LABS: Appearance,Urine CLEAR (Clear); Bilirubin,Urine Negative (Negative); Blood, Urine Negative (Negative); Color,Urine YELLOW (Yellow); Glucose,Urine (UA) Negative (Negative); Ketones,Urine Negative (Negative); Leukocyte Esterase,Urine Negative (Negative); Nitrate,Urine Negative (Negative); Protein,Urine TRACE (Negative); Specific Gravity, Urine >= 1.030 (1.005-1.030)
[2022-05-22 18:26] LABS: Amphetamine/Metha Screen,Urine Negative ng/ml (<1000); Barbiturates Screen,Urine Negative ng/ml (<200)
[2022-05-22 18:27] LABS: Benzodiazepines Screen,Urine Negative ng/ml (<200)
[2022-05-22 18:28] LABS: Cannabinoid Screen,Urine Negative ng/ml (<50); Cocaine Screen,Urine Negative ng/ml (<300)
[2022-05-22 18:29] LABS: Methadone Screen,Urine Negative ng/ml (<300); Opiate Screen,Urine Negative ng/ml (<300)
[2022-05-22 18:30] LABS: Phencyclidine Screen,Urine Negative ng/ml (<25)
[2022-05-22 18:40] LABS: Bacteria,Urine Trace /lpf; WBC,Urine Occasional #/hpf (0-3)
== END 2022-05-22 19:30 | disposition home or self-care (01) ==
LOC: OBOUT 16:52 → OB 16:52
PROVIDERS: PCP Nurse Practitioner Obstetrics & Gynecology; Visit Provider Nurse Practitioner Obstetrics & Gynecology
DX: O47.03 False labor before 37 completed weeks of gestation, third trimester (principal); Z3A.35 35 weeks gestation of pregnancy
CPT/HCPCS: 59025; 80305; 81001; 96365; G0463; J2405

== ENCOUNTER → 2022-05-23 10:15 | Outpatient (CLI) | payer OTHER, SELFPAY ==
[2022-05-23 10:29] LABS: Occult Blood,Stool Negative (Negative)
[2022-05-23 10:29] LABS: Occult Blood,Stool Negative (Negative)
[2022-05-23 10:29] LABS: Occult Blood,Stool Negative (Negative)
== END ==
PROVIDERS: Internal Medicine Hematology & Oncology; PCP Internal Medicine Adolescent Medicine
DX: D50.0 Iron deficiency anemia secondary to blood loss (chronic) (principal)
CPT/HCPCS: 82272; G0328

== ENCOUNTER → 2022-05-24 09:17 | Outpatient (CLI) | payer OTHER, SELFPAY ==
[2022-05-24 10:18] LABS: Basophils # 0.1 K/mm3 (0-0.2); Basophils % 0.4 % (0.1-2.0); Eosinophils # 0.1 K/mm3 (0.0-0.4); Eosinophils % 0.5 % (0.1-12.0); Hematocrit 33.8 % (37.0-47.0); Hemoglobin 9.7 g/dL (12.2-16.2); Lymphocytes # 1.7 K/mm3 (0.7-4.5); Lymphocytes % 15.6 % (10-50); Mean Corpuscular HGB Conc 28.7 g/dL (31.8-35.4); Mean Corpuscular Volume 76.7 fl (81-99); Mean Platelet Volume 7.2 fl (7.4-10.4); Monocytes # 0.5 K/mm3 (0.1-1.0); Monocytes % 4.7 % (1.7-9.3); Neutrophils # 8.7 K/mm3 (1.8-7.8); Neutrophils % 78.8 % (37.0-80.0); Platelet Count 224 K/mm3 (142-424); Red Blood Count 4.41 M/mm3 (4.20-5.40); Red Cell Distribution Width 20.6 % (11.5-17.5); White Blood Count 11.1 K/mm3 (4.8-10.8)
== END ==
PROVIDERS: PCP Internal Medicine Adolescent Medicine; Visit Provider Nurse Practitioner Obstetrics & Gynecology
DX: D50.0 Iron deficiency anemia secondary to blood loss (chronic) (principal)
CPT/HCPCS: 36415; 85025

== ENCOUNTER → 2022-05-27 15:47 | Outpatient (CLI) | payer OTHER, SELFPAY | PROVIDERS: Visit Provider Nurse Practitioner Obstetrics & Gynecology | DX: Z34.90 Encounter for supervision of normal pregnancy, unspecified, unspecified trimester (principal); Z3A.35 35 weeks gestation of pregnancy | CPT/HCPCS: 86403 ==

== ENCOUNTER 2022-05-29 23:50 | Outpatient (CLI) | payer OTHER, SELFPAY ==
[2022-05-30 00:08] VITALS: BMI 34.5
[2022-05-30 00:11] VITALS: BP 113/55; PULSE 68; RESP 18; TEMP 36.6; O2SAT 100; BMI 34.5
[2022-05-30 00:23] LABS: Microscopic, Urine URINE MICROSCOPIC (MICROSCOPIC)
[2022-05-30 00:29] LABS: Basophils % 0.3 % (0.1-2.0); Eosinophils # 0.2 K/mm3 (0.0-0.4); Eosinophils % 1.2 % (0.1-12.0); Hematocrit 31.7 % (37.0-47.0); Lymphocytes # 1.9 K/mm3 (0.7-4.5); Lymphocytes % 15.1 % (10-50); Mean Corpuscular HGB Conc 31.7 g/dL (31.8-35.4); Mean Corpuscular Hemoglobin 22.8 pg (27.0-31.2); Mean Platelet Volume 8.7 fl (7.4-10.4); Monocytes # 0.6 K/mm3 (0.1-1.0); Monocytes % 4.5 % (1.7-9.3); Neutrophils % 78.8 % (37.0-80.0); Platelet Count 337 K/mm3 (142-424); White Blood Count 12.7 K/mm3 (4.8-10.8)
[2022-05-30 00:30] LABS: Appearance,Urine SL CLOUDY (Clear); Blood, Urine Negative (Negative); Color,Urine YELLOW (Yellow); Glucose,Urine (UA) Negative (Negative); Ketones,Urine Negative (Negative); Leukocyte Esterase,Urine Negative (Negative); Nitrate,Urine Negative (Negative); Protein,Urine TRACE (Negative); Specific Gravity, Urine >= 1.030 (1.005-1.030)
[2022-05-30 00:34] LABS: Bilirubin,Urine Negative (Negative); Squamous Epithelial Cell,Urine 20-50 #/hpf (0-5)
[2022-05-30 00:37] LABS: Amphetamine/Metha Screen,Urine Negative ng/ml (<1000)
[2022-05-30 00:38] LABS: Barbiturates Screen,Urine Negative ng/ml (<200)
[2022-05-30 00:39] LABS: Benzodiazepines Screen,Urine Negative ng/ml (<200); Cannabinoid Screen,Urine Negative ng/ml (<50)
[2022-05-30 00:40] LABS: Cocaine Screen,Urine Negative ng/ml (<300)
[2022-05-30 00:41] LABS: Methadone Screen,Urine Negative ng/ml (<300); Opiate Screen,Urine Negative ng/ml (<300)
[2022-05-30 00:42] LABS: Phencyclidine Screen,Urine Negative ng/ml (<25)
[2022-05-30 00:42] LABS: Alanine Aminotransferase 15 U/L (12-78); Albumin Level 3.4 g/dl (3.5-5.0); Albumin/Globulin Ratio 1.2 (1.1-1.8); Alkaline Phosphatase 161 U/L (38-126); Anion Gap 10.8 mEq/L (5-15); Aspartate Amino Transferase 22 U/L (14-36); Blood Urea Nitrogen 6 mg/dl (7-17); Calcium 8.8 mg/dl (8.4-10.2); Carbon Dioxide 20 mmol/L (22.0-30.0); Chloride 108 mmol/L (98-107); Creatinine Clearance Estimated 283 mL/min (50-200); Estimated Glomerular Filt Rate 190 ml/min (>60); GFR (African American) 230 ML/MIN (>60); Globulin 2.9 g/dL (1.3-3.2); Glucose 81 mg/dl (74-100); Potassium 3.8 mmoL/L (3.5-5.1); Sodium 135 mmol/L (136-145); Total Protein,Serum 6.3 g/dl (6.3-8.2)
== END 2022-05-30 02:28 | disposition home or self-care (01) ==
LOC: OBOUT 23:50 → OB 23:50
PROVIDERS: PCP Internal Medicine Adolescent Medicine; Visit Provider Obstetrics & Gynecology
DX: O47.03 False labor before 37 completed weeks of gestation, third trimester (principal); Z3A.36 36 weeks gestation of pregnancy
CPT/HCPCS: 59025; 80053; 80305; 81001; 85025; 96365; G0463

== ENCOUNTER 2022-05-31 14:37 | Outpatient (CLI) | payer OTHER, SELFPAY ==
[2022-05-31 15:13] VITALS: BMI 34.4
[2022-05-31 15:20] LABS: Microscopic, Urine URINE MICROSCOPIC (MICROSCOPIC)
[2022-05-31 15:25] LABS: Appearance,Urine SL CLOUDY (Clear); Bilirubin,Urine Negative (Negative); Blood, Urine Negative (Negative); Color,Urine YELLOW (Yellow); Glucose,Urine (UA) Negative (Negative); Ketones,Urine TRACE (Negative); Leukocyte Esterase,Urine 2+ (Negative); Nitrate,Urine Negative (Negative); Protein,Urine Negative (Negative); Specific Gravity, Urine >= 1.030 (1.005-1.030)
[2022-05-31 15:41] LABS: RBC,Urine Occasional #/hpf (0-3)
[2022-05-31 16:46] LABS: Benzodiazepines Screen,Urine Negative ng/ml (<200)
[2022-05-31 16:47] LABS: Amphetamine/Metha Screen,Urine Negative ng/ml (<1000); Barbiturates Screen,Urine Negative ng/ml (<200)
[2022-05-31 16:48] LABS: Cocaine Screen,Urine Negative ng/ml (<300)
[2022-05-31 16:49] LABS: Cannabinoid Screen,Urine Negative ng/ml (<50); Methadone Screen,Urine Negative ng/ml (<300)
[2022-05-31 16:50] LABS: Opiate Screen,Urine Negative ng/ml (<300)
[2022-05-31 16:51] LABS: Phencyclidine Screen,Urine Negative ng/ml (<25)
[2022-05-31 17:14] VITALS: BP 119/76; PULSE 106; RESP 19; TEMP 36.8; O2SAT 100; BMI 15.7
[2022-05-31 17:49] VITALS: BMI 34.4
== END 2022-05-31 17:47 | disposition home or self-care (01) ==
LOC: OBOUT 14:38 → OB 14:38
PROVIDERS: PCP Internal Medicine Adolescent Medicine; Visit Provider Nurse Practitioner Obstetrics & Gynecology
DX: O47.03 False labor before 37 completed weeks of gestation, third trimester (principal); Z3A.36 36 weeks gestation of pregnancy
CPT/HCPCS: 59025; 80305; 81001; 87086; 96365; G0463; J0595

== ENCOUNTER 2022-06-02 19:15 | Outpatient (CLI) | payer OTHER, SELFPAY ==
[2022-06-02 19:25] VITALS: BMI 34.7
[2022-06-02 19:53] LABS: Microscopic, Urine URINE MICROSCOPIC (MICROSCOPIC)
[2022-06-02 19:57] LABS: Appearance,Urine CLEAR (Clear); Bilirubin,Urine Negative (Negative); Blood, Urine Negative (Negative); Color,Urine YELLOW (Yellow); Glucose,Urine (UA) Negative (Negative); Ketones,Urine 1+ (Negative); Leukocyte Esterase,Urine Negative (Negative); Nitrate,Urine Negative (Negative); Protein,Urine Negative (Negative); Urobilinogen,Urine 0.2 EU/dl (0.2)
[2022-06-02 20:10] LABS: Amphetamine/Metha Screen,Urine Negative ng/ml (<1000); Fetal Membrane Rupture (Rapid) Negative (Negative)
[2022-06-02 20:11] LABS: Barbiturates Screen,Urine Negative ng/ml (<200); Benzodiazepines Screen,Urine Negative ng/ml (<200)
[2022-06-02 20:12] LABS: Bacteria,Urine Trace /lpf; Cannabinoid Screen,Urine Negative ng/ml (<50); Cocaine Screen,Urine Negative ng/ml (<300); RBC,Urine Occasional #/hpf (0-3); WBC,Urine Occasional #/hpf (0-3)
[2022-06-02 20:13] LABS: Methadone Screen,Urine Negative ng/ml (<300)
[2022-06-02 20:14] LABS: Opiate Screen,Urine Negative ng/ml (<300); Phencyclidine Screen,Urine Negative ng/ml (<25)
[2022-06-02 20:16] VITALS: BP 131/83; PULSE 89; RESP 18; TEMP 36.7; O2SAT 98; BMI 34.7
== END 2022-06-02 20:30 | disposition home or self-care (01) ==
LOC: OBOUT 19:17 → OB 19:18
PROVIDERS: PCP Internal Medicine Adolescent Medicine; Visit Provider Obstetrics & Gynecology
DX: O47.03 False labor before 37 completed weeks of gestation, third trimester (principal); Z3A.36 36 weeks gestation of pregnancy
CPT/HCPCS: 59025; 80305; 81001; 84112; G0463

== ENCOUNTER 2022-06-05 10:31 | Inpatient (IN) | payer OTHER, SELFPAY ==
[2022-06-05 09:42] VITALS: BMI 34.4
[2022-06-05 09:47] VITALS: BP 144/87; PULSE 90; RESP 19; TEMP 36.4; O2SAT 100; BMI 35.5
[2022-06-05 09:48] LABS: Microscopic, Urine URINE MICROSCOPIC (MICROSCOPIC)
[2022-06-05 09:50] LABS: Appearance,Urine CLEAR (Clear); Bilirubin,Urine Negative (Negative); Blood, Urine Negative (Negative); Color,Urine YELLOW (Yellow); Glucose,Urine (UA) Negative (Negative); Ketones,Urine Negative (Negative); Leukocyte Esterase,Urine Negative (Negative); Nitrate,Urine Negative (Negative); Protein,Urine Negative (Negative); Specific Gravity, Urine <= 1.005 (1.005-1.030); Urobilinogen,Urine 0.2 EU/dl (0.2)
--- NOTE | 2022-06-05 09:56 | EXP.LABOR.NO ---
Labor Note Subjective: Date: 06/05/22 Time: 09:56 regular contraction Objective: NST:: Reactive Contractions:: every 2-3 minutes Cervical Dilation:: 1-2 Effacement:: 10% Station: -3 Membranes: spontaneously ruptured Fetus: Monitoring?: Yes monitoring type:: External Assessment: Labor progressing?: No Cephalopelvic disproportion?: No All Active Problems (Updated 06/03/22 @ 10:[address] MD) Polyhydramnios affecting in third trimester (Acute) IUGR (intrauterine growth restriction) (Acute) Uterine contractions at greater than 20 weeks of gestation (Acute) (Acute) labor (Acute) History of prior with SGA (Acute) GERD (gastroesophageal reflux disease) (Acute) Anemia (Chronic) affected by growth restriction (Acute) Plan: Anesthesia for epidural?: No Continue to labor down?: Yes Plan for ?: No Continue to monitor?: Yes Start pushing?: No Additional information:: She thinks she may have ruptured her membranes when she arrived here this morning. We will await the results of the AmniSure. If the AmniSure is positive then we will go ahead and admit her and deliver her today.
[2022-06-05 09:58] LABS: Fetal Membrane Rupture (Rapid) Negative (Negative)
[2022-06-05 09:59] LABS: Squamous Epithelial Cell,Urine Occasional #/hpf (0-5); WBC,Urine Occasional #/hpf (0-3)
[2022-06-05 10:01] LABS: Barbiturates Screen,Urine Negative ng/ml (<200)
[2022-06-05 10:02] LABS: Benzodiazepines Screen,Urine Negative ng/ml (<200)
[2022-06-05 10:03] LABS: Amphetamine/Metha Screen,Urine Negative ng/ml (<1000); Cannabinoid Screen,Urine Negative ng/ml (<50)
[2022-06-05 10:04] LABS: Cocaine Screen,Urine Negative ng/ml (<300)
[2022-06-05 10:05] LABS: Methadone Screen,Urine Negative ng/ml (<300); Opiate Screen,Urine Negative ng/ml (<300)
[2022-06-05 10:06] LABS: Phencyclidine Screen,Urine Negative ng/ml (<25)
--- NOTE | 2022-06-05 10:07 | EXP.ACUTE.PN ---
Subjective *Date: 06/05/22 *Time: 10:07 Interval history: She is having contractions but there really has not been any change in her cervix. We had thought that she had ruptured her membranes but the AmniSure was negative. Ultrasound shows baby in cephalic presentation with a pocket of at least 6 cm of fluid in the uterine cavity. Medical Exam Vital signs and Labs for Last 24 Hours: Temp Pulse Resp BP Pulse Ox 97.5 F L 90 19 144/87 H 100 06/05/22 09:47 06/05/22 09:47 06/05/22 09:47 06/05/22 09:47 06/05/22 09:47 Laboratory Results - last 24 hr 06/05/22 09:18: Urine Color Yellow, Urine Appearance Clear, Urine pH 7.0, Ur Specific [place] <= 1.005, Urine Protein Negative, Urine Glucose (UA) Negative, Urine Ketones Negative, Urine Blood Negative, Urine Nitrate Negative, Urine Bilirubin Negative, Urine Urobilinogen 0.2, Ur Leukocyte Esterase Negative, Urine WBC Occasional, Ur Squamous Epith Cells Occasional 06/05/22 09:18: Membrane Rupture Negative 06/05/22 09:18: Urine Opiates Screen Negative, Urine Methadone Screen Negative, Ur Barbituates Screen Negative, Ur Phencyclidine Scrn Negative, Ur Amphetamines Screen Negative, U Benzodiazepines Scrn Negative, Urine Cocaine Screen Negative, U Marijuana (THC) Screen Negative I & O for Labs for Last 24 Hours: Intake & Output 06/02/22 06/03/22 06/04/22 06/05/22 11:59 11:59 11:59 11:59 Weight 188 lb Head: Present atraumatic Neck: Present normal inspection Respiratory: Present normal respiratory effort Assessment and Plan *Assessment and plan (1) Uterine contractions at greater than 20 weeks of gestation: Status: Acute Category: Medical (2) IUGR (intrauterine growth restriction): Status: Acute Category: Medical Assessment and plan all Dx Assessment and Plan All Dx:: We will continue to watch her. The nonstress test is reactive. She is having a few contractions but they are mild. She is not in any distress. We will send her home to follow-up with me in the office in the morning. Since she has mild polyhydramnios as well as a small for gestational age we have elected to deliver her in about 48 hours.
[2022-06-05 11:58] LABS: Coronavirus 19, PCR Not Detected (NotDetected); Influenza A, PCR Not Detected (NotDetected); Influenza B, PCR Not Detected (NotDetected)
[2022-06-05 12:04] LABS: Basophils # 0.1 K/mm3 (0-0.2); Basophils % 0.5 % (0.1-2.0); Eosinophils # 0.1 K/mm3 (0.0-0.4); Eosinophils % 0.7 % (0.1-12.0); Hematocrit 29.7 % (37.0-47.0); Hemoglobin 9.6 g/dL (12.2-16.2); Lymphocytes # 1.5 K/mm3 (0.7-4.5); Lymphocytes % 15.2 % (10-50); Mean Corpuscular HGB Conc 32.3 g/dL (31.8-35.4); Mean Corpuscular Hemoglobin 23.6 pg (27.0-31.2); Mean Corpuscular Volume 72.9 fl (81-99); Mean Platelet Volume 8.9 fl (7.4-10.4); Monocytes # 0.6 K/mm3 (0.1-1.0); Monocytes % 5.6 % (1.7-9.3); Neutrophils # 7.8 K/mm3 (1.8-7.8); Neutrophils % 77.9 % (37.0-80.0); Platelet Count 281 K/mm3 (142-424); Red Blood Count 4.07 M/mm3 (4.20-5.40); Red Cell Distribution Width 22.5 % (11.5-17.5)
--- NOTE | 2022-06-05 19:13 | EXP.HP ---
History of Present Illness *Admission Date: 06/05/22 *Reason for visit:: IUGR, polyhydramnios, labor *History of present illness: She is a 27-year-old 3 para 2 who has had multiple admissions for labor. She has not really changed her cervix much. Ultrasound showed that she had a small for gestational age infant as well as polyhydramnios. As result of that we are going to induce her labor. 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 current occupational exposures/hazards: No caffeine: Yes special wilver needs: No agree to transfusion: Yes helmet use: No drive intox or ride w/ intox intermodal truck driver: No water heater temp set < 120 deg: Yes working smoke detector in home: Yes fire extinguisher in home: Yes carbon monox detector in home: Yes firearms in home: No do you feel safe at home: Yes victim of physical abuse: No victim of emotional abuse: No victim of sexual abuse: No would you like helpful sources: No Review of Systems Review of Systems Review of systems:: pertinent systems reviewed and negative unless documented below Meds Home Medications and Allergies Home Medications Medication Instructions Recorded Confirmed Type ascorbic acid (vitamin C) 250 mg 250 mg PO DAILY Supplement 04/15/21 06/03/22 History tablet cholecalciferol (vitamin D3) 25 2,000 unit PO DAILY Supplement 04/15/21 06/03/22 History mcg (1,000 unit) capsule EFT46-UP 400 mcg-om3 35 mg-dha 25 1 tab PO DAILY Supplement 10/20/21 06/03/22 History mg-epa 5 mg-fish oil chewable tablet ferrous sulfate 325 mg (65 mg 325 mg PO DAILY Supplement 10/20/21 06/03/22 History iron) tablet (Feosol) nioklqjjys-xslrizhxmgjrl-qyjclhln 1 cap PO Q8HP PRN Moderate Pain 05/12/22 06/03/22 History 50 mg-300 mg-40 mg capsule New Prescriptions to Start Prescriptions: Allergies Allergy/AdvReac Type Severity Reaction Status Date / Time povidone-iodine Allergy Unknown mild Verified 06/03/22 09:00 [From BETADINE] swelling procaine [From NOVOCAIN] Allergy Unknown mild Verified 06/03/22 09:00 swelling lidocaine Allergy mild Verified 06/03/22 09:00 swelling nifedipine Allergy Verified 06/03/22 09:00 Exam Data for Last 24 hours Vital signs and Labs for Last 24 Hours: Temp Pulse Resp BP Pulse Ox 97.5 F L 90 19 144/87 H 100 06/05/22 09:47 06/05/22 09:47 06/05/22 09:47 06/05/22 09:47 06/05/22 09:47 Laboratory Results - last 24 hr 06/05/22 09:18: Urine Color Yellow, Urine Appearance Clear, Urine pH 7.0, Ur Specific [place] <= 1.005, Urine Protein Negative, Urine Glucose (UA) Negative, Urine Ketones Negative, Urine Blood Negative, Urine Nitrate Negative, Urine Bilirubin Negative, Urine Urobilinogen 0.2, Ur Leukocyte Esterase Negative, Urine WBC Occasional, Ur Squamous Epith Cells Occasional 06/05/22 09:18: Membrane Rupture Negative 06/05/22 09:18: Urine Opiates Screen Negative, Urine Methadone Screen Negative, Ur Barbituates Screen Negative, Ur Phencyclidine Scrn Negative, Ur Amphetamines Screen Negative, U Benzodiazepines Scrn Negative, Urine Cocaine Screen Negative, U Marijuana (THC) Screen Negative 06/05/22 11:47: WBC 10.0, RBC 4.07 L, Hgb 9.6 L, Hct 29.7 L, MCV 72.9 L, MCH 23.6 L, MCHC 32.3, RDW 22.5 H, Plt Count 281, MPV 8.9, Neut % (Auto) 77.9, Lymph % (Auto) 15.2, [place] % (Auto) 5.6, Eos % (Auto) 0.7, Baso % (Auto) 0.5, Neut # (Auto
--- NOTE | 2022-06-05 19:16 | EXP.LABOR.NO ---
Labor Note Subjective: Date: 06/05/22 Time: 19:16 irregular contractions Objective: NST:: Reactive Contractions:: infrequent Cervical Dilation:: 1-2 Effacement:: 25% Station: -3 Membranes: intact Fetus: Monitoring?: Yes monitoring type:: External Assessment: Labor progressing?: No Cephalopelvic disproportion?: No All Active Problems (Updated 06/05/22 @ 19:[address] MD) Polyhydramnios affecting in third trimester (Acute) IUGR (intrauterine growth restriction) (Acute) Uterine contractions at greater than 20 weeks of gestation (Acute) (Acute) labor (Acute) History of prior with SGA (Acute) GERD (gastroesophageal reflux disease) (Acute) Anemia (Chronic) affected by growth restriction (Acute) Plan: Anesthesia for epidural?: No Continue to labor down?: Yes Plan for ?: No Continue to monitor?: Yes Start pushing?: No Comment:: I inserted Cervidil in the vagina. We will expect a vaginal delivery. I attempted a Pinedo bulb in the cervix but it did not want to go in.
--- NOTE | 2022-06-06 08:32 | EXP.LABOR.NO ---
Labor Note Subjective: Date: 06/06/22 Time: 08:32 regular contraction Objective: NST:: Reactive Contractions:: every 2-3 minutes Cervical Dilation:: 2-3 Effacement:: 50% Station: -3 Membranes: artificially ruptured Comment:: I ruptured her membranes and there was clear fluid. Fetus: Monitoring?: Yes monitoring type:: External Assessment: Labor progressing?: Yes Cephalopelvic disproportion?: No All Active Problems (Updated 06/05/22 @ 19:[address] MD) Polyhydramnios affecting in third trimester (Acute) IUGR (intrauterine growth restriction) (Acute) Uterine contractions at greater than 20 weeks of gestation (Acute) (Acute) labor (Acute) History of prior with SGA (Acute) GERD (gastroesophageal reflux disease) (Acute) Anemia (Chronic) affected by growth restriction (Acute) Plan: Anesthesia for epidural?: Yes Continue to labor down?: Yes Plan for ?: No Continue to monitor?: Yes Start pushing?: No Additional information:: I ruptured her membranes and there was clear fluid. She is terese well. She has changed her cervix overnight. The cervix is very soft now and 50% effaced. We will expect a vaginal delivery. She does have a epidural.
--- NOTE | 2022-06-06 10:59 | EXP.LABOR.NO ---
Labor Note Subjective: Date: 06/06/22 Time: 10:50 regular contraction Objective: NST:: Reactive Contractions:: every 4-5 minutes Cervical Dilation:: 4 Effacement:: 75% Station: -2 Membranes: artificially ruptured Fetus: Monitoring?: Yes monitoring type:: External Assessment: Labor progressing?: Yes Cephalopelvic disproportion?: No All Active Problems (Updated 06/05/22 @ 19:[address] MD) Polyhydramnios affecting in third trimester (Acute) IUGR (intrauterine growth restriction) (Acute) Uterine contractions at greater than 20 weeks of gestation (Acute) (Acute) labor (Acute) History of prior with SGA (Acute) GERD (gastroesophageal reflux disease) (Acute) Anemia (Chronic) affected by growth restriction (Acute) Plan: Anesthesia for epidural?: Yes Continue to labor down?: Yes Plan for ?: No Continue to monitor?: Yes Start pushing?: No
--- NOTE | 2022-06-06 16:48 | EXP.DN ---
Delivery Note Delivery Date:: 06/06/22 Delivery Time:: 11:59 Anesthesia Type: Epidural Was labor medically induced?: Yes Induction method: per misoprostol protocol Gestational age (weeks): 37 Infant delivered prior to 39 weeks?: Yes Justification for early elective delivery:: IUGR and Polyhydraminos Infant Gender: Male at 1 minute: 9 at 5 minutes: 9 Delivery Procedure:: She is a 27-year-old 3 para 2 who has had multiple episodes of labor. She was noted last week to have polyhydramnios as well as a small for gestational age infant. She came in last night having regular contractions so we elected to augment her labor. She had Cervidil overnight and this morning had her membranes ruptured and under labor epidural progressed to full dilation. She delivered spontaneously a liveborn male child at 11:59 AM. The baby had Apgars of 9 at 1 minute and 9 at 5 minutes. He weighed 5 pounds 13 ounces. On deliver the head the anterior shoulder easily delivered followed by the rest the infant's body atraumatically. The cord was allowed to continue to pulsate for approximately 1 minute. The baby was vigorous. The cord was then doubly clamped and cut and the infant was placed on the mother's abdomen for further care. The nurses assigned Apgars of 9 at 1 minute and 9 at 5 minutes. We then obtained cord blood. She received IV oxytocin using gentle traction on the cord and countertraction on the fundus I was able to easily deliver the placenta intact. It had a normal three-vessel cord. There were no perineal or vaginal lacerations. Estimated blood loss was approximately 200 cc. Placental Delivery Description: Spontaneous
[2022-06-07 06:49] LABS: Hematocrit 27.9 % (37.0-47.0); Hemoglobin 8.8 g/dL (12.2-16.2)
--- NOTE | 2022-06-07 08:43 | EXP.ACUTE.PN ---
Subjective *Date: 06/07/22 *Time: 08:43 Interval history: She is 1 day from a vaginal delivery. She is doing well. She is breast-feeding. Her lochia is normal. Medical Exam Vital signs and Labs for Last 24 Hours: Temp Pulse Resp BP Pulse Ox 97.5 F L 90 19 144/87 H 100 06/05/22 09:47 06/05/22 09:47 06/05/22 09:47 06/05/22 09:47 06/05/22 09:47 Laboratory Results - last 24 hr 06/05/22 11:47: Blood Type A Positive, Antibody Screen Negative, Crossmatch (AHG) See Detail 06/07/22 06:32: Hgb 8.8 L, Hct 27.9 L I & O for Labs for Last 24 Hours: Intake & Output 06/04/22 06/05/22 06/06/22 06/07/22 11:59 11:59 11:59 11:59 Weight 188 lb Head: Present atraumatic and normocephalic Neck: Present normal inspection Respiratory: Present normal respiratory effort Assessment and Plan *Assessment and plan (1) Polyhydramnios affecting in third trimester: Status: Acute Category: Medical Code(s): O40.3XX0 - Polyhydramnios, third trimester, not applicable or unspecified (2) IUGR (intrauterine growth restriction): Status: Acute Category: Medical (3) Normal delivery: Status: Acute Category: Medical Code(s): O80 - Encounter for full-term uncomplicated delivery Assessment and plan all Dx Assessment and Plan All Dx:: She is doing very well 1 day from a vaginal delivery. She is eating and drinking and ambulating. She is breast-feeding. Her lochia is normal. We will plan to send her home tomorrow.
[2022-06-08 08:04] VITALS: BP 124/75; PULSE 81; RESP 18; TEMP 36.7; O2SAT 97
--- NOTE | 2022-06-08 10:13 | EXP.DC.SUM ---
General Admission date:: 06/05/22 HPI HPI HPI: She is a 27-year-old 3 para 2 who has had multiple admissions for labor. She has not really changed her cervix much. Ultrasound showed that she had a small for gestational age as well as polyhydramnios. As result of that we are going to induce her labor. She is also been followed for severe anemia throughout the . 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 She has been taking iron tablets twice daily and this seems to have kept up her iron levels. She has had a previous gastric bypass. Hospital Course Hospital Course Hospital Course: She had Cervidil placed and progressed overnight. She was started on IV oxytocin had her membranes ruptured. She progressed to full dilation and delivered spontaneously a liveborn male childYet at 11:59 AM on June 06, 2022. The baby weighed 5 pounds 13 ounces and had Apgars of 9 at 1 minute and 9 at 5 minutes. She has done well and has remained afebrile throughout her hospitalization. She is eating and drinking and ambulating. She is breast-feeding. Her lochia is normal. She has a positive blood draw, she is rubella immune and was group B streptococcus positive. She did receive IV antibiotics while in labor. She is discharged home to follow-up with me in approximately 2 weeks time. She will continue with her vitamins and iron. Exam Data for Last 24 hours Vital signs and Labs for Last 24 Hours: Temp Pulse Resp BP Pulse Ox 98.0 F 81 18 124/75 97 06/08/22 08:04 06/08/22 08:04 06/08/22 08:04 06/08/22 08:04 06/08/22 08:04 I & O for Last 24 hours: Intake & Output 06/05/22 06/06/22 06/07/22 06/08/22 11:59 11:59 11:59 11:59 Weight 188 lb Constitutional Constitutional: no acute distress *Routine HEENT Exam Head: Present normocephalic *Routine Respiratory Exam Respiratory: Present normal respiratory effort DS: Diagnosis Discharge Diagnosis (1) Polyhydramnios affecting in third trimester: Status: Acute (2) IUGR (intrauterine growth restriction): Status: Acute (3) Normal delivery: Status: Acute (4) Uterine contractions at greater than 20 weeks of gestation: Status: Acute (5) labor: Status: Acute (6) History of prior with SGA : Status: Acute (7) GERD (gastroesophageal reflux disease): Status: Acute (8) Anemia: Status: Chronic Meds Home Medications and Allergies Home Medications Medication Instructions Recorded Confirmed Type ascorbic acid (vitamin C) 250 mg 250 mg PO DAILY Supplement 04/15/21 06/06/22 History tablet cholecalciferol (vitamin D3) 25 2,000 unit PO DAILY Supplement 04/15/21 06/06/22 History mcg (1,000 unit) capsule ferrous sulfate 325 mg (65 mg 325 mg PO DAILY Supplement 10/20/21 06/06/22 History iron) tablet (Feosol) vitamins-iron fumarate 65 1 tab PO DAILY Supplement 06/06/22 06/06/22 History mg iron-folic acid 1 mg tablet New Prescriptions to Start Prescriptions: Allergies Allergy/AdvReac Type Severity Reaction Status Date / Time povidone-iodine Allergy Unknown mild Verified 06/03/22 09:00 [From BETADINE] swelling procaine [From NOVOCAIN] Allergy Unknown mild Verified 06/03/22 09:00 swelling lidocaine Allergy mild Verified 06/03/22 09:00 swelling nifedipine Allergy Verified 06/03/22 09:00 Discharge Plan Disposition Patient Disposition: Home, Self-Care Discharge Order Discharge Orders: Discharge Order (Routine); Ordered 06/08/22 Ordered By: Bret Way Follow up Plan Follow up with: Bret Way MD [Staff Physician] - 06/30/22 10:30 am Prescriptions/Medication Reconciliation: Continued ferrous sulfate [Feosol] 325 mg (65 mg iron) tablet 325 mg PO DAILY ascorbic acid (vitamin C) 250 MG tablet 250 mg PO DAILY cholecalciferol (vitamin D3) 1,000 UNIT capsule
== END 2022-06-08 11:50 | disposition home or self-care (01) | DRG 807 ==
LOC: OBOUT 10:32 → OB 10:32
PROVIDERS: Admitting Provider Nurse Practitioner Obstetrics & Gynecology; PCP Internal Medicine Adolescent Medicine; Visit Provider Nurse Practitioner Obstetrics & Gynecology
DX: O40.3XX0 Polyhydramnios, third trimester, not applicable or unspecified (principal); Z37.0 Single live birth; O36.5930 Maternal care for other known or suspected poor fetal growth, third trimester, not applicable or unspecified; Z3A.37 37 weeks gestation of pregnancy; Z87.59 Personal history of other complications of pregnancy, childbirth and the puerperium; D64.9 Anemia, unspecified; K21.9 Gastro-esophageal reflux disease without esophagitis; O99.013 Anemia complicating pregnancy, third trimester
CPT/HCPCS: 59409; 36415; 59025; 80305; 81001; 84112; 85014; 85018; 85025; 86850; 94761; C9803; G0283; J0290; J0595; J2405; U0003; U0005

== ENCOUNTER 2022-11-14 08:46 | Emergency (ER) | payer OTHER, SELFPAY ==
[2022-11-14 09:10] VITALS: BP 139/76; PULSE 128; RESP 23; TEMP 37.2; O2SAT 99; BMI 34.7
[2022-11-14 09:35] LABS: UTC Strep Screen (Rapid) Negative (Negative)
--- NOTE | 2022-11-14 09:45 | EXP.UTC ---
Discharge Plan Disposition Patient Disposition: Home, Self-Care Condition: Good Prescriptions Prescriptions: New amoxicillin [amoxicillin] 875 mg tablet 875 mg PO Q12H Qty: 20 0RF methylprednisolone 4 mg Tablets,Dose Pack 4 mg PO DIRECTED Qty: 21 0RF mvlyfsskhhcrrsq-ieqbbjqrr-ST [Bromfed DM] 2-30-10 mg/5 mL Syrup 5 ml PO Q6H PRN (Reason: Cough) Qty: 240 0RF No Action ferrous sulfate [Feosol] 325 mg (65 mg iron) tablet 325 mg PO DAILY ascorbic acid (vitamin C) 250 MG tablet 250 mg PO DAILY cholecalciferol (vitamin D3) 1,000 UNIT capsule 2,000 unit PO DAILY 1 + Iron 65 mg iron- 1 mg Tablet 1 tab PO DAILY Referrals Follow up/Referrals: Santi Aldana MD [Primary Care Provider] - See instructions Activity Restrictions/Add. Instructions Additional Instructions/Restrictions: Drink plenty of fluids. Take tylenol or ibuprofen for pain or fever. Take the medications as directed. Follow up with your regular doctor. GO TO THE ER FOR ANY WORSENING SYMPTOMS Clinical Impressions Clinical Impression: Sinusitis, Acute viral syndrome Instructions Patient Instructions: Sinusitis, DI for Sinusitis Discharge ED Provider: Angel Barrow [facility] General Stated complaint: ear pain, sore throat, fever Mode of Arrival: Ambulatory Source of Information: Patient Limitations: No Limitations Time Seen by Provider: 11/14/22 09:43 Description of Symptoms (Recalled from Triage Doc. by RN): PATIENT C/O SORE THROAT, SWOLLEN TONSILS AND FEVER SINCE YESTERDAY HEENT Symptoms (Recalled from RN notes): Yes Resp Symptoms (Recalled from RN notes): No Skin Symptoms (Recalled from RN notes): No MS Symptoms (Recalled from RN notes): No Functional Status (Recalled from RN notes): WNL History of Present Illness Provider Complaint: She states that for the past 5 days she has had sore throat and sinus congestion. She has also had chest congestion with a productive cough with yellow sputum. She denies fever. Related Data Home Medications Medication Instructions Recorded Confirmed ascorbic acid (vitamin C) 250 mg 250 mg PO DAILY Supplement 04/15/21 08/11/22 tablet cholecalciferol (vitamin D3) 25 2,000 unit PO DAILY Supplement 04/15/21 08/11/22 mcg (1,000 unit) capsule ferrous sulfate 325 mg (65 mg 325 mg PO DAILY Supplement 10/20/21 08/11/22 iron) tablet (Feosol) vitamins-iron fumarate 65 1 tab PO DAILY Supplement 06/06/22 08/11/22 mg iron-folic acid 1 mg tablet Previous Rx's Medication Instructions Recorded amoxicillin 875 mg tablet 875 mg PO Q12H #20 tabs 11/14/22 foitlpyqbmjpeyz-fyzpchddbeyavua-UA 5 ml PO Q6H PRN Cough #240 mL 11/14/22 2 mg-30 mg-10 mg/5 mL oral syrup (Bromfed DM) methylprednisolone 4 mg tablets in 4 mg PO DIRECTED #21 tabs 11/14/22 a dose pack Allergies Allergy/AdvReac Type Severity Reaction Status Date / Time povidone-iodine Allergy Unknown mild Verified 08/11/22 08:44 [From BETADINE] swelling procaine [From NOVOCAIN] Allergy Unknown mild Verified 08/11/22 08:44 swelling lidocaine Allergy mild Verified 08/11/22 08:44 swelling nifedipine Allergy Verified 08/11/22 08:44 Worker's Comp Is this a Worker's Comp case?: No [facility] Disclaimer: The information contained in this section may have been updated after the patient was seen, as this information can be updated by other users. Medical History History of anemia History of prior with SGA History of syncope Urinary tract infection Surgical History H/O gastric bypass History of cholecystectomy Family History Other No significant family history Social History Smoking Status: Never smoker second hand exposure:
[2022-11-14 09:55] VITALS: BP 139/76; PULSE 128; RESP 23; TEMP 37.2; O2SAT 99
== END 2022-11-14 09:57 | disposition home or self-care (01) ==
PROVIDERS: Emergency Provider Nurse Practitioner Family; PCP Internal Medicine Adolescent Medicine
DX: J32.9 Chronic sinusitis, unspecified (principal); B34.9 Viral infection, unspecified
CPT/HCPCS: 87880; 99212; 99213; G0463

== ENCOUNTER → 2023-04-20 23:28 | Outpatient (CLI) | payer OTHER, SELFPAY ==
[2023-04-20 18:51] LABS: Basophils % 0.3 % (0.1-2.0); Eosinophils % 0.8 % (0.1-12.0); Hematocrit 25.9 % (37.0-47.0); Hemoglobin 7.3 g/dL (12.2-16.2); Lymphocytes # 1.5 K/mm3 (0.7-4.5); Mean Corpuscular HGB Conc 28.3 g/dL (31.8-35.4); Mean Corpuscular Volume 60.1 fl (81-99); Mean Platelet Volume 8.7 fl (7.4-10.4); Monocytes # 0.3 K/mm3 (0.1-1.0); Monocytes % 5.2 % (1.7-9.3); Neutrophils # 3.4 K/mm3 (1.8-7.8); Neutrophils % 64.7 % (37.0-80.0); Platelet Count 253 K/mm3 (142-424); Red Blood Count 4.31 M/mm3 (4.20-5.40); Red Cell Distribution Width 17.2 % (11.5-17.5); White Blood Count 5.2 K/mm3 (4.8-10.8)
[2023-04-20 18:52] LABS: Alanine Aminotransferase 23 U/L (12-78); Albumin Level 4.2 g/dl (3.5-5.0); Albumin/Globulin Ratio 1.5 (1.1-1.8); Alkaline Phosphatase 99 U/L (38-126); Anion Gap 10.5 mEq/L (5-15); Aspartate Amino Transferase 29 U/L (14-36); Bilirubin,Total 1.2 mg/dl (0.2-1.3); Blood Urea Nitrogen 7 mg/dl (7-17); Calcium 9.1 mg/dl (8.4-10.2); Carbon Dioxide 27 mmol/L (22.0-30.0); Chloride 107 mmol/L (98-107); Estimated Glomerular Filt Rate 118 ml/min (>60); GFR (African American) 143 ML/MIN (>60); Globulin 2.8 g/dL (1.3-3.2); Glucose 85 mg/dl (74-100); Potassium 4.5 mmoL/L (3.5-5.1); Sodium 140 mmol/L (136-145)
[2023-04-20 19:09] LABS: 25-OH Vitamin D, Total 29.2 ng/mL (30-100)
[2023-04-20 19:24] LABS: Thyroid Stimulating Hormone 1.67 uIU/mL (0.465-4.68)
[2023-04-20 19:59] LABS: Vitamin B12 311 pg/mL (239-931)
[2023-04-20 20:31] LABS: Iron 22 ug/dL (37-170)
[2023-04-20 20:41] LABS: Total Iron Binding Capacity 487 ug/dL (265-497)
== END ==
PROVIDERS: PCP Nurse Practitioner; Visit Provider Nurse Practitioner
DX: D64.9 Anemia, unspecified (principal); F41.8 Other specified anxiety disorders; D50.9 Iron deficiency anemia, unspecified; E55.9 Vitamin D deficiency, unspecified; Z79.899 Other long term (current) drug therapy
CPT/HCPCS: 80053; 82306; 82607; 82746; 83540; 83550; 84443; 85025

== ENCOUNTER → 2023-05-11 23:39 | Outpatient (CLI) | payer OTHER, SELFPAY ==
[2023-05-11 18:45] LABS: Basophils % 0.8 % (0.1-2.0); Eosinophils # 0.1 K/mm3 (0.0-0.4); Eosinophils % 1.7 % (0.1-12.0); Hematocrit 29.4 % (37.0-47.0); Hemoglobin 8.2 g/dL (12.2-16.2); Lymphocytes # 1.5 K/mm3 (0.7-4.5); Lymphocytes % 27.2 % (10-50); Mean Corpuscular HGB Conc 27.8 g/dL (31.8-35.4); Mean Corpuscular Hemoglobin 17.9 pg (27.0-31.2); Mean Corpuscular Volume 64.6 fl (81-99); Mean Platelet Volume 9.4 fl (7.4-10.4); Monocytes # 0.5 K/mm3 (0.1-1.0); Monocytes % 8.6 % (1.7-9.3); Neutrophils # 3.3 K/mm3 (1.8-7.8); Neutrophils % 61.7 % (37.0-80.0); Platelet Count 487 K/mm3 (142-424); Red Blood Count 4.56 M/mm3 (4.20-5.40); Red Cell Distribution Width 20.2 % (11.5-17.5); White Blood Count 5.4 K/mm3 (4.8-10.8)
== END ==
PROVIDERS: PCP Nurse Practitioner; Visit Provider Nurse Practitioner
DX: D64.9 Anemia, unspecified (principal)
CPT/HCPCS: 85025

== ENCOUNTER → 2023-06-22 13:32 | Outpatient (CLI) | payer OTHER, SELFPAY ==
[2023-06-22 14:18] LABS: Iron 15 ug/dL (37-170)
[2023-06-22 14:20] LABS: Basophils % 0.4 % (0.1-2.0); Eosinophils # 0.1 K/mm3 (0.0-0.4); Eosinophils % 0.7 % (0.1-12.0); Hematocrit 28.6 % (37.0-47.0); Hemoglobin 8.3 g/dL (12.2-16.2); Lymphocytes # 1.8 K/mm3 (0.7-4.5); Lymphocytes % 26.5 % (10-50); Mean Corpuscular HGB Conc 29.1 g/dL (31.8-35.4); Mean Corpuscular Hemoglobin 18.2 pg (27.0-31.2); Mean Corpuscular Volume 62.5 fl (81-99); Mean Platelet Volume 9.3 fl (7.4-10.4); Monocytes # 0.4 K/mm3 (0.1-1.0); Neutrophils # 4.5 K/mm3 (1.8-7.8); Neutrophils % 66.3 % (37.0-80.0); Platelet Count 263 K/mm3 (142-424); Red Blood Count 4.57 M/mm3 (4.20-5.40); Red Cell Distribution Width 17.9 % (11.5-17.5); White Blood Count 6.8 K/mm3 (4.8-10.8)
[2023-06-22 14:27] LABS: Total Iron Binding Capacity 424 ug/dL (265-497)
[2023-06-22 14:54] LABS: Ferritin 3.69 ng/ml (6.24-137)
[2023-06-22 16:50] LABS: Vitamin B12 330 pg/mL (239-931)
[2023-06-22 16:51] LABS: Folate 5.18 ng/mL
== END ==
PROVIDERS: PCP Nurse Practitioner; Visit Provider Internal Medicine Medical Oncology
DX: D50.9 Iron deficiency anemia, unspecified (principal)
CPT/HCPCS: 36415; 82607; 82728; 82746; 83540; 83550; 85025

== ENCOUNTER 2023-06-30 08:34 | Outpatient (CLI) | payer OTHER, SELFPAY ==
[2023-06-30 08:47] VITALS: BP 128/69; PULSE 77; RESP 20; TEMP 36.7; O2SAT 97
[2023-06-30 09:56] VITALS: BP 134/66; PULSE 66; RESP 20; O2SAT 99
== END 2023-06-30 10:00 | disposition home or self-care (01) ==
LOC: INF 08:34
PROVIDERS: PCP Nurse Practitioner; Visit Provider Internal Medicine Medical Oncology
DX: D50.0 Iron deficiency anemia secondary to blood loss (chronic) (principal)
CPT/HCPCS: 96365; J1756

== ENCOUNTER 2023-06-30 16:47 | Emergency (ER) | payer OTHER, SELFPAY ==
[2023-06-30] VITALS (7 sets, daily range): BP systolic 111–136; BP diastolic 50–83; PULSE 96–111; RESP 18–40; TEMP 36.8–37.7; O2SAT 97–100; BMI 34.4
--- NOTE | 2023-06-30 16:53 | ECG_ITS ---
APPROVED REPORT Exam: Resting ECG HR:109 bpm ECG Measurements Heart Rate 109 AXES VT 132 P 62 QRSd 71 QRS 29 QT 311 T 41 QTc 375 Conclusion SINUS TACHYCARDIA MODERATE ST DEPRESSION [0.05+ mV ST DEPRESSION] ABNORMAL ECG UNCONFIRMED REPORT Electronically signed by : Santi Aldana MD 07/01/2023 07:55:40
--- NOTE | 2023-06-30 16:58 | HMH.EDGENADL ---
Discharge Plan Disposition Patient Disposition: Home, Self-Care Condition: Good Prescriptions Prescriptions: No Action buspirone 10 mg tablet 10 mg PO BID PRN (Reason: anxiety) Qty: 60 2RF sertraline 100 mg tablet 100 mg PO DAILY Qty: 90 3RF ferrous sulfate [Feosol] 325 mg (65 mg iron) tablet 325 mg PO DAILY cholecalciferol (vitamin D3) 125 mcg (5,000 unit) tablet 125 mcg PO DAILY Qty: 30 5RF Referrals Follow up/Referrals: Wendy Rivas APRN [Primary Care Provider] - See instructions Activity Restrictions/Add. Instructions Additional Instructions/Restrictions: Please return to the emergency department if you experience any new or worsening symptoms. Clinical Impressions Clinical Impression: Iron adverse reaction Qualifiers: Encounter type: initial encounter Qualified Code(s): T45.4X5A - Adverse effect of iron and its compounds, initial encounter Discharge ED Provider: Neptali De Paz Adult HPI General Chief complaint: Allergic Reaction Stated complaint: iron infusion this morning, possible reaction Time Seen by Provider: 06/30/23 16:54 History of Present Illness HPI narrative: The patient presents with a chief complaint of a reaction to their iron transfusion. They report having had success with this type of iron transfusion previously, but experienced a reaction during the second administration. The patient started experiencing symptoms of nausea during the infusion, which was administered at 8:30. They also report a racing heart, passing out, and shortness of breath as additional symptoms. No rashes or cold symptoms were reported. The patient has a history of anemia due to an absorption issue and receives iron transfusions as treatment. They deny any bleeding or pain with urination. Prior to the infusion, the patient was not feeling sick and has no known allergies. They did not experience any tongue or throat swelling during the reaction. The patient was given Benadryl before the infusion and was instructed to take it again in the afternoon when they called the clinic to report their ongoing symptoms. The patient took the second dose of Benadryl at 2:10. Related Data Home Medications Medication Instructions Recorded Confirmed ferrous sulfate 325 mg (65 mg 325 mg PO DAILY Supplement 10/20/21 06/29/23 iron) tablet (Feosol) Previous Rx's Medication Instructions Recorded cholecalciferol (vitamin D3) 125 125 mcg PO DAILY #30 tabs 04/24/23 mcg (5,000 unit) tablet buspirone 10 mg tablet 10 mg PO BID PRN anxiety #60 tabs 05/11/23 sertraline 100 mg tablet 100 mg PO DAILY #90 tabs 06/29/23 Allergies Allergy/AdvReac Type Severity Reaction Status Date / Time ferumoxytol Allergy Severe Difficulty Verified 06/29/23 09:33 Breathing povidone-iodine Allergy Unknown mild Verified 06/29/23 09:33 [From BETADINE] swelling procaine [From NOVOCAIN] Allergy Unknown mild Verified 06/29/23 09:33 swelling lidocaine Allergy mild Verified 06/29/23 09:33 swelling nifedipine Allergy Unknown Verified 06/29/23 09:33 [facility] Disclaimer: The information contained in this section may have been updated after the patient was seen, as this information can be updated by other users. Medical History Anxiety with depression History of anemia History of prior with SGA History of syncope Urinary tract infection Surgical History H/O gastric bypass History of cholecystectomy Family History Other No significant family history Social History Smoking Status: Never smoker second hand exposure: No alcohol intake: never substance use type: denies use counseling given: No current occupational s
--- NOTE | 2023-06-30 18:07 | PC.NURSE ---
Rounded on pt. No needs voiced at this time. Call light within reach.
--- NOTE | 2023-06-30 19:04 | PC.NURSE ---
rechecked with he does not want labs checked for this visit. He denies his want for lab orders currently. States I will review her again .
--- NOTE | 2023-06-30 19:29 | PC.NURSE ---
Patient resting with visitor at bedside. No needs or complaints at this time.
== END 2023-06-30 20:27 | disposition home or self-care (01) ==
PROVIDERS: Emergency Provider Emergency Medicine; PCP Nurse Practitioner
DX: T45.4X5A Adverse effect of iron and its compounds, initial encounter (principal); R00.0 Tachycardia, unspecified; R06.02 Shortness of breath; R11.0 Nausea; D50.9 Iron deficiency anemia, unspecified; F41.9 Anxiety disorder, unspecified; F32.A Depression, unspecified
CPT/HCPCS: 93005; 96360; 96361; 99284

== ENCOUNTER 2023-07-07 08:07 | Outpatient (CLI) | payer OTHER, SELFPAY ==
[2023-07-07 09:05] VITALS: BP 111/72; PULSE 74; RESP 17; O2SAT 100
[2023-07-07 09:35] VITALS: BP 121/78; PULSE 74; RESP 16
== END 2023-07-07 09:50 | disposition home or self-care (01) ==
LOC: INF 08:08
PROVIDERS: PCP Nurse Practitioner; Visit Provider Internal Medicine Medical Oncology
DX: D50.9 Iron deficiency anemia, unspecified (principal)
CPT/HCPCS: 96365; J1756

== ENCOUNTER 2023-07-13 08:30 | Outpatient (CLI) | payer OTHER, SELFPAY ==
[2023-07-13 09:22] VITALS: BP 121/72; PULSE 83; RESP 18; TEMP 36.8; O2SAT 100
[2023-07-13 09:52] VITALS: BP 134/64; PULSE 81; RESP 18; O2SAT 99
== END 2023-07-13 10:12 | disposition home or self-care (01) ==
LOC: INF 08:30
PROVIDERS: PCP Nurse Practitioner; Visit Provider Internal Medicine Medical Oncology
DX: D50.0 Iron deficiency anemia secondary to blood loss (chronic) (principal)
CPT/HCPCS: 96365; J1756

== ENCOUNTER 2023-07-20 08:40 | Outpatient (CLI) | payer OTHER, SELFPAY ==
[2023-07-20 09:20] VITALS: BP 141/82; PULSE 79; RESP 18; TEMP 36.8; O2SAT 100
[2023-07-20 09:50] VITALS: BP 135/68; PULSE 71; RESP 18; O2SAT 100
== END 2023-07-20 10:00 | disposition home or self-care (01) ==
LOC: INF 08:41
PROVIDERS: PCP Nurse Practitioner; Visit Provider Internal Medicine Medical Oncology
DX: D50.9 Iron deficiency anemia, unspecified (principal)
CPT/HCPCS: 96365; J1756

== ENCOUNTER 2023-08-11 08:18 | Outpatient (CLI) | payer OTHER, SELFPAY ==
[2023-08-11 08:59] VITALS: BP 132/77; PULSE 74; RESP 18; TEMP 36.6; O2SAT 100
[2023-08-11 09:40] VITALS: BP 143/72; PULSE 97; RESP 18; O2SAT 100
== END 2023-08-11 09:40 | disposition home or self-care (01) ==
LOC: INF 08:19
PROVIDERS: PCP Nurse Practitioner; Visit Provider Internal Medicine Medical Oncology
DX: D50.0 Iron deficiency anemia secondary to blood loss (chronic) (principal)
CPT/HCPCS: 96365; J1756

== ENCOUNTER 2023-11-08 09:09 | Outpatient (CLI) | payer OTHER, SELFPAY ==
[2023-11-08 09:15] VITALS: BMI 34.2
--- NOTE | 2023-11-08 09:20 | PC.NURSE ---
0918: C, Bang DÍAZ collected labs via venipuncture stick with butterfly needle in R ac. Patient d/c to Dr. Marvin fall.
[2023-11-08 09:30] LABS: Basophils % 0.5 % (0.1-2.0); Eosinophils # 0.1 K/mm3 (0.0-0.4); Eosinophils % 1.2 % (0.1-12.0); Hematocrit 36.1 % (37.0-47.0); Hemoglobin 11.9 g/dL (12.2-16.2); Lymphocytes # 1.6 K/mm3 (0.7-4.5); Lymphocytes % 33.7 % (10-50); Mean Corpuscular HGB Conc 32.9 g/dL (31.8-35.4); Mean Corpuscular Hemoglobin 24.7 pg (27.0-31.2); Mean Corpuscular Volume 74.9 fl (81-99); Mean Platelet Volume 8.9 fl (7.4-10.4); Monocytes # 0.3 K/mm3 (0.1-1.0); Monocytes % 6.4 % (1.7-9.3); Neutrophils # 2.7 K/mm3 (1.8-7.8); Neutrophils % 58.2 % (37.0-80.0); Platelet Count 226 K/mm3 (142-424); Red Blood Count 4.82 M/mm3 (4.20-5.40); Red Cell Distribution Width 14.9 % (11.5-17.5); White Blood Count 4.6 K/mm3 (4.8-10.8)
[2023-11-08 09:57] LABS: Iron 41 ug/dL (37-170)
[2023-11-08 10:13] LABS: Total Iron Binding Capacity 437 ug/dL (265-497)
[2023-11-08 11:23] LABS: Folate 8.32 ng/mL
[2023-11-08 14:03] LABS: Vitamin B12 277 pg/mL (239-931)
== END 2023-11-08 09:20 | disposition home or self-care (01) ==
LOC: INF 09:12
PROVIDERS: PCP Nurse Practitioner; Visit Provider Internal Medicine Medical Oncology
DX: D50.0 Iron deficiency anemia secondary to blood loss (chronic) (principal)
CPT/HCPCS: 36415; 82607; 82728; 82746; 83540; 83550; 85025

== ENCOUNTER 2023-11-13 08:30 | Outpatient (CLI) | payer OTHER, SELFPAY ==
[2023-11-13] MEDS: diphenhydrAMINE 25MG CAPSULE 25 MG PO (08:50)
[2023-11-13] MEDS: DEXAMETHASONE 4MG/ML 5ML MDV 20 MG (08:50)
[2023-11-13] MEDS: SODIUM CHLORIDE 0.9% 10ML FLUSH SYRINGE 10 ML IV (09:14)
[2023-11-13 09:20] VITALS: BP 120/84; PULSE 76; RESP 18; TEMP 36.7; O2SAT 99
[2023-11-13] MEDS: IRON SUCROSE COMPLEX 200 MG in 0.9 % SODIUM CHLORIDE 100 ML 220 MG IV (09:20)
[2023-11-13 09:50] VITALS: BP 121/81; PULSE 72; O2SAT 99
[2023-11-13] MEDS: SODIUM CHLORIDE 0.9% 50ML BAG 50 ML IV (10:05)
== END 2023-11-13 10:00 | disposition home or self-care (01) ==
LOC: INF 08:30
PROVIDERS: PCP Nurse Practitioner; Visit Provider Internal Medicine Medical Oncology
DX: D50.0 Iron deficiency anemia secondary to blood loss (chronic) (principal)
CPT/HCPCS: 96365; J1756

== ENCOUNTER 2023-11-20 08:32 | Outpatient (CLI) | payer OTHER, SELFPAY ==
[2023-11-20] MEDS: SODIUM CHLORIDE 0.9% 10ML FLUSH SYRINGE 10 ML IV (08:47)
[2023-11-20] MEDS: DEXAMETHASONE 4MG/ML 5ML MDV 20 MG IV (08:47)
[2023-11-20] MEDS: SODIUM CHLORIDE 0.9% 50ML BAG 50 ML IV (08:47)
[2023-11-20] MEDS: diphenhydrAMINE 25MG CAPSULE 25 MG PO (08:48)
[2023-11-20 09:17] VITALS: BP 131/82; PULSE 69; RESP 16; TEMP 36.6; O2SAT 99
[2023-11-20] MEDS: IRON SUCROSE COMPLEX 200 MG in 0.9 % SODIUM CHLORIDE 100 ML 220 MG IV (09:17)
[2023-11-20 09:45] VITALS: BP 107/75; PULSE 84; RESP 16; O2SAT 99
[2023-11-20 10:00] VITALS: BP 130/79; PULSE 89; RESP 18; TEMP 36.6; O2SAT 100
== END 2023-11-20 10:14 | disposition home or self-care (01) ==
LOC: INF 08:32
PROVIDERS: PCP Nurse Practitioner; Visit Provider Internal Medicine Medical Oncology
DX: D50.8 Other iron deficiency anemias (principal); K95.89 Other complications of other bariatric procedure
CPT/HCPCS: 96365; J1756

== ENCOUNTER 2023-11-27 08:32 | Outpatient (CLI) | payer OTHER, SELFPAY ==
[2023-11-27] MEDS: diphenhydrAMINE 25MG CAPSULE 25 MG PO (08:41)
[2023-11-27] MEDS: DEXAMETHASONE 4MG/ML 5ML MDV 20 MG IV (08:42)
[2023-11-27] MEDS: IRON SUCROSE COMPLEX 200 MG in 0.9 % SODIUM CHLORIDE 100 ML 220 MG IV (08:53)
[2023-11-27 09:15] VITALS: BP 146/78; PULSE 85; RESP 18; TEMP 36.6; O2SAT 100
[2023-11-27 09:50] VITALS: BP 146/69; PULSE 91; RESP 18; O2SAT 100
== END 2023-11-27 09:45 | disposition home or self-care (01) ==
LOC: INF 08:32
PROVIDERS: PCP Nurse Practitioner; Visit Provider Internal Medicine Medical Oncology
DX: D50.0 Iron deficiency anemia secondary to blood loss (chronic) (principal)
CPT/HCPCS: 96365; J1756

== ENCOUNTER 2023-12-11 08:23 | Outpatient (CLI) | payer OTHER, SELFPAY ==
[2023-12-11 08:40] LABS: Basophils # 0.1 K/mm3 (0-0.2); Eosinophils # 0.1 K/mm3 (0.0-0.4); Eosinophils % 1.7 % (0.1-12.0); Hematocrit 37.8 % (37.0-47.0); Lymphocytes # 1.5 K/mm3 (0.7-4.5); Lymphocytes % 31.7 % (10-50); Mean Corpuscular HGB Conc 31.7 g/dL (31.8-35.4); Mean Corpuscular Hemoglobin 25.3 pg (27.0-31.2); Mean Corpuscular Volume 79.6 fl (81-99); Mean Platelet Volume 8.5 fl (7.4-10.4); Monocytes # 0.2 K/mm3 (0.1-1.0); Monocytes % 5.2 % (1.7-9.3); Neutrophils # 2.8 K/mm3 (1.8-7.8); Neutrophils % 60.3 % (37.0-80.0); Platelet Count 199 K/mm3 (142-424); Red Blood Count 4.75 M/mm3 (4.20-5.40); Red Cell Distribution Width 17.9 % (11.5-17.5); White Blood Count 4.7 K/mm3 (4.8-10.8)
[2023-12-11 09:12] LABS: Alanine Aminotransferase 28 U/L (12-78); Albumin Level 3.6 g/dl (3.5-5.0); Albumin/Globulin Ratio 1.4 (1.1-1.8); Alkaline Phosphatase 64 U/L (38-126); Anion Gap 8.9 mEq/L (5-15); Aspartate Amino Transferase 23 U/L (14-36); Bilirubin,Total 0.7 mg/dl (0.2-1.3); Blood Urea Nitrogen 7 mg/dl (7-17); Calcium 8.7 mg/dl (8.4-10.2); Carbon Dioxide 24 mmol/L (22.0-30.0); Chloride 110 mmol/L (98-107); Estimated Glomerular Filt Rate 118 ml/min (>60); GFR (African American) 143 ML/MIN (>60); Globulin 2.5 g/dL (1.3-3.2); Glucose 91 mg/dl (74-100); Potassium 3.9 mmoL/L (3.5-5.1); Sodium 139 mmol/L (136-145); Total Protein,Serum 6.1 g/dl (6.3-8.2)
[2023-12-11 09:30] LABS: HCG,Quantitative < 2 mIU/ml (0-5.42)
== END 2023-12-11 23:59 ==
LOC: LAB 08:24
PROVIDERS: PCP Nurse Practitioner; Visit Provider Obstetrics & Gynecology
DX: N92.0 Excessive and frequent menstruation with regular cycle (principal)
CPT/HCPCS: 36415; 80053; 84702; 85025

== ENCOUNTER 2023-12-15 06:04 | Day surgery (SDC) | payer OTHER, SELFPAY ==
[2023-12-12 17:13] VITALS: BMI 38.2
[2023-12-15] VITALS (11 sets, daily range): BP systolic 119–141; BP diastolic 73–88; PULSE 77–99; RESP 16–19; TEMP 36.4; O2SAT 98–100
[2023-12-15] MEDS: LACTATED RINGERS 1000ML 1,000 ML 25 ML IV (06:34)
--- NOTE | 2023-12-15 07:00 | EXP.ANES.CKL ---
[facility] Disclaimer: The information contained in this section may have been updated after the patient was seen, as this information can be updated by other users. 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 current occupational exposures/hazards: No caffeine: Yes special wilver needs: No agree to transfusion: Yes helmet use: No drive intox or ride w/ intox 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 water heater temp set < 120 deg: Yes working smoke detector in home: Yes fire extinguisher in home: Yes carbon monox detector in home: Yes firearms in home: No do you feel safe at home: Yes victim of physical abuse: No victim of emotional abuse: No victim of sexual abuse: No would you like helpful sources: No [facility] Anesthesia Checklist Patient Identification Patient Identification: Arm Band and Verbal (Name & ) Structural Data Admitted From: Home Planned Operative Procedure/s: Hyst/D & C Consent for Planned Operative Procedure(s) Verified: Yes NPO Status Verified Time NPO: 00:00 Chart Verification Results Verified: HCG Additional verifications Anesthesia Reactions: No Hx Blood Transfusions: Yes Blood Transfusion Reaction: No Airway Assessment Mallampati Score:: Class I C-Spine Mobility Assessed: Yes TMJ Mobility Assessed: Yes Dentition: Good Dentition Neurological Assessment Level of Consciousness: Awake Hx Seizures: No Numbness or tingling in extremities: No Anesthesia Plan Anesthesia Risk discussed: Yes Anesthesia Plan: Verified ASA Class: II Anesthesia Type: General
--- NOTE | 2023-12-15 08:01 | EXP.ANES.I ---
[facility] Anesthesia Record Part I Anesthesia Record I Intake, IV Amount: 900 Hydration: Adequate Estimated blood loss (mL): 10 Urine output (mL): 150 Blood Pressure: 126/75 SaO2: 99 Pulse Rate: 94 Airway Patency: Patent Respiratory Rate: 19 Temperature: 97.6 F Patient is:: Drowsy and Oral/Nasal airway Stable to PACU at:: 07:55
--- NOTE | 2023-12-15 09:02 | EXP.OP.NOTE ---
Date of procedure: 12/15/23 Pre-op Diagnosis:: 1. Abnormal uterine bleeding 2. Menorrhagia 3. Iron deficiency anemia 4. Contraception: Vasectomy Post-op Diagnosis:: 1. Abnormal uterine bleeding 2. Menorrhagia 3. Iron deficiency anemia 4. Contraception: Vasectomy Procedure performed:: Hysteroscopy, dilation curettage, NovaSure endometrial ablation Surgeon:: Ave Pennington DO HOME RESTORATION SERVICE CLEANER:: Medardo Martinez Anesthesia: GETA Estimated blood loss (mL): 10 Operative findings:: EUA revealed an anteverted uterus with normal size, shape and contour. No gross adnexal masses noted. Operative note:: Procedure: Hysteroscopy, D&C with NovaSure ablation Summary: The patient was taken back to the OR where general anesthesia was obtained. She was placed in the dorsal lithotomy position using yellowfin stirrups and sterilely prepped and draped in the usual fashion. An in and out catheter was used to drain her bladder. A timeout was performed. A weighted speculum was used to visualize this cervix, a single-tooth tenaculum was applied to the anterior lip of the cervix and the uterus sounded to 8cm. The cervix was dilated with Gonzales dilators to accommodate a 7mm Hysteroscope. The hysterscope was inserted to the fundus. Images were obtained of the cavity and each tubal ostia. The hysteroscope was removed with careful attention to note the cervical length, 3.5cm. A Telfa was placed in the vagina and endometrial curettings were collected on it. Sharp curette was used to curette the outer navarro of the endometrium until uterine cry was noted diffusely. The Novasure device was opened, deployed, and noted to be functioning properly. The device was inserted to the fundus, set to a length of 4.5cm, and deployed to a width of 4.7cm. Cavity integrity was assessed and adequate. The ablation was started and total ablation time was slightly greater than 1 minute. The Novasure device was removed from the cervical os and the hysterscope was reinserted. The endometrium was noted to be successfully ablated and an image was obtained. All instruments were removed from the vagina. Hemostasis was noted at the tenaculum sites. All counts were correct, per nursing. This concluded the procedure, the pt was awakened from anesthesia and transferred to the PACU in stable condition. Patient will follow-up in 1 to 2 weeks in the office with me Condition: stable Disposition: same day Specimens:: Endometrial curettings Complications:: none
--- NOTE | 2023-12-15 13:32 | P.PNANES_ITS ---
[facility] Anesthesia Record Part II Anesthesia Record Part II Discharge Time: 08:25 Destination: Surgical Day Care (OP Surgery) PACU nurse assessment reviewed?: Yes Patient Condition:: Good Anesthesia Complications:: None Swallowing reflex intact?: Yes Airway Patency: Patent Cyanosis?: No Blood Pressure: 137/78 SaO2: 99 Respiratory Rate: 19 Pulse Rate: 96 Temperature: 97.6 F Mental Status: Alert & Oriented Pain level:: 0 Nausea and/or vomitting:: None Intake, IV Amount: 0 Hydration: Adequate
== END 2023-12-15 09:43 | disposition home or self-care (01) ==
PROVIDERS: PCP Nurse Practitioner; Visit Provider Obstetrics & Gynecology
PROC: (CPT 58563; principal; 2023-12-15 07:30)
DX: N93.9 Abnormal uterine and vaginal bleeding, unspecified (principal); N92.0 Excessive and frequent menstruation with regular cycle; D50.9 Iron deficiency anemia, unspecified
CPT/HCPCS: 58563; J2405

== ENCOUNTER 2024-02-14 11:00 | Outpatient (CLI) | payer OTHER, SELFPAY ==
[2024-02-14 19:11] LABS: Basophils % 0.7 % (0.1-2.0); Eosinophils # 0.1 K/mm3 (0.0-0.4); Eosinophils % 1.3 % (0.1-12.0); Hematocrit 42.2 % (37.0-47.0); Hemoglobin 13.4 g/dL (12.2-16.2); Lymphocytes # 1.6 K/mm3 (0.7-4.5); Lymphocytes % 32.2 % (10-50); Mean Corpuscular HGB Conc 31.8 g/dL (31.8-35.4); Mean Corpuscular Hemoglobin 26.9 pg (27.0-31.2); Mean Corpuscular Volume 84.6 fl (81-99); Mean Platelet Volume 9.1 fl (7.4-10.4); Monocytes # 0.3 K/mm3 (0.1-1.0); Monocytes % 5.9 % (1.7-9.3); Neutrophils % 59.8 % (37.0-80.0); Platelet Count 302 K/mm3 (142-424); Red Blood Count 4.99 M/mm3 (4.20-5.40); Red Cell Distribution Width 16.4 % (11.5-17.5)
[2024-02-14 20:02] LABS: Alanine Aminotransferase 29 U/L (12-78); Albumin Level 4.1 g/dl (3.5-5.0); Albumin/Globulin Ratio 1.4 (1.1-1.8); Alkaline Phosphatase 108 U/L (38-126); Anion Gap 13.4 mEq/L (5-15); Aspartate Amino Transferase 30 U/L (14-36); Bilirubin,Total 0.8 mg/dl (0.2-1.3); Blood Urea Nitrogen 6 mg/dl (7-17); Calcium 9.2 mg/dl (8.4-10.2); Carbon Dioxide 25 mmol/L (22.0-30.0); Chloride 107 mmol/L (98-107); Chol/HDL Ratio 3.5 (1-3.5); Cholesterol 173 mg/dl (140-200); Estimated Glomerular Filt Rate 118 ml/min (>60); GFR (African American) 143 ML/MIN (>60); Glucose 86 mg/dl (74-100); HDL Cholesterol 50 mg/dl (40-60); Iron 61 ug/dL (37-170); Potassium 4.4 mmoL/L (3.5-5.1); Sodium 141 mmol/L (136-145); Total Protein,Serum 7.1 g/dl (6.3-8.2); Triglycerides 106 mg/dl (30-150); VLDL Cholesterol 21 mg/dL (0-40)
[2024-02-14 20:11] LABS: Total Iron Binding Capacity 348 ug/dL (265-497)
[2024-02-14 20:21] LABS: 25-OH Vitamin D, Total 20.4 ng/mL (30-100)
[2024-02-14 20:23] LABS: Hemoglobin A1C 4.9 % (4.0-6.0)
[2024-02-14 20:32] LABS: Thyroid Stimulating Hormone 1.46 uIU/mL (0.465-4.68)
[2024-02-14 20:52] LABS: Direct LDL Cholesterol 94.17 mg/dL (100-129)
[2024-02-14 21:08] LABS: Vitamin B12 258 pg/mL (239-931)
[2024-02-14 21:10] LABS: Folate 5.43 ng/mL
== END 2024-02-14 23:59 | disposition home or self-care (01) ==
LOC: LAB.DROPOF 02-15 11:00
PROVIDERS: PCP Nurse Practitioner; Visit Provider Nurse Practitioner
DX: F41.8 Other specified anxiety disorders (principal); D64.9 Anemia, unspecified; K21.9 Gastro-esophageal reflux disease without esophagitis; Z13.1 Encounter for screening for diabetes mellitus; Z13.220 Encounter for screening for lipoid disorders; E66.9 Obesity, unspecified; Z68.39 Body mass index [BMI] 39.0-39.9, adult; E55.9 Vitamin D deficiency, unspecified; Z79.899 Other long term (current) drug therapy
CPT/HCPCS: 80053; 80061; 82306; 82607; 82746; 83036; 83540; 83550; 84443; 85025

== ENCOUNTER 2024-02-26 16:09 | Outpatient (CLI) | payer OTHER, SELFPAY ==
--- NOTE | 2024-02-26 16:10 | MM_ITS ---
PROCEDURE INFORMATION: Exam: MG Bilateral Screening 3D Mammography Exam date and time: 02/26/2024 4:10 PM Age: 28 years old Clinical indication: Screening examination; family history breast cancer in mother TECHNIQUE: Imaging protocol: Bilateral Screening tomosynthesis and 2D mammography including computer-aided detection (CAD) when performed. COMPARISON: No relevant prior studies available. FINDINGS: MAMMOGRAPHY: Breast composition: There are scattered areas of fibroglandular density. Mass: None. Architectural distortion: None. Calcifications: No suspicious calcifications. Asymmetric density: None. Skin thickening: None. Axillary adenopathy: None. IMPRESSION: No mammographic evidence of malignancy. Annual screening is recommended unless otherwise clinically indicated. ASSESSMENT: BI-RADS Category 1: Negative
== END 2024-02-26 23:59 | disposition home or self-care (01) ==
LOC: RAD 16:10
PROVIDERS: PCP Nurse Practitioner; Visit Provider Nurse Practitioner
DX: Z12.31 Encounter for screening mammogram for malignant neoplasm of breast (principal); Z80.3 Family history of malignant neoplasm of breast
CPT/HCPCS: 77063; 77067

== ENCOUNTER 2024-10-25 13:01 | Emergency (ER) | payer OTHER, SELFPAY ==
--- NOTE | 2024-10-25 14:39 | ED_ITS ---
Discharge Plan Disposition Patient Disposition: Home, Self-Care Condition: Good Prescriptions Prescriptions: New sulfamethoxazole-trimethoprim [Bactrim DS] 800-160 mg Tablet 1 tab PO BID 10 Days Qty: 20 0RF cephalexin 500 mg capsule 500 mg PO QID 10 Days Qty: 40 0RF mupirocin 2 % ointment 1 applic topical TID 7 Days Qty: 15 0RF No Action bupropion HCl 150 mg tablet extended release 24 hr 150 mg PO DAILY Qty: 30 2RF Referrals Follow up/Referrals: Wendy Rivas APRN [Primary Care Provider] - See instructions Activity Restrictions/Add. Instructions Additional Instructions/Restrictions: Keep the affected area clean and dry. Follow up with your regular doctor. Take the antibiotics as directed and apply the topical antibiotics as directed. Apply warm wet compresses to the affected area three or four times per day. GO TO THE ER FOR ANY WORSENING SYMPTOMS Please follow up with your primary care physician or return here in 3 days to have your wound rechecked and to go over the culture report to have your antibiotics adjusted (if necessary). Clinical Impressions Clinical Impression: Abscess of skin, Cellulitis Instructions Patient Instructions: Cellulitis, DI for Skin Abscess Print Language Print Language: Bulgarian Discharge ED Provider: Angel Barrow [facility] General Stated complaint: abcess above R Knee Time Seen by Provider: 10/25/24 14:39 History of Present Illness Provider Complaint: She states that for the past 2 weeks she has had an area of tenderness, redness and mild swelling on her right inner thigh. She states that she has a history of getting boils like this, but usually they get better and heal quicker than this one has. She states that the wound has had some tannish drainage from its center. She denies any fever or chills, but she does state that she is starting to feel bad. She denies that she is a diabetic and she denies . Related Data Previous Rx's ?Medication ?Instructions ?Recorded cephalexin 500 mg capsule 500 mg PO QID 10 days #40 caps 10/25/24 mupirocin 2 % topical ointment 1 applic topical TID 7 days #15 10/25/24 grams sulfamethoxazole 800 1 tab PO BID 10 days #20 tabs 10/25/24 mg-trimethoprim 160 mg tablet (Bactrim DS) bupropion HCl 150 mg 24 hr tablet, 150 mg PO DAILY #30 tabs 10/28/24 extended release Allergies Allergy/AdvReac Type Severity Reaction Status Date / Time ferumoxytol Allergy Severe Difficulty Verified 10/28/24 14:59 Breathing povidone-iodine (From Allergy Unknown mild Verified 10/28/24 14:59 BETADINE) swelling procaine (From NOVOCAIN) Allergy Unknown mild Verified 10/28/24 14:59 swelling nifedipine Allergy Unknown Verified 10/28/24 14:59 allergy reaction [facility] Disclaimer: The information contained in this section may have been updated after the patient was seen, as this information can be updated by other users. Medical History (Updated 10/28/24 @ 15:15 by Wendy Rivas APRN) Abscess of right thigh Cellulitis of right thigh Obesity Family history of breast cancer in mother Screening for malignant neoplasm of breast Migraine History of gastroesophageal reflux (GERD) Hemorrhoid Anxiety with depression History of anemia History of syncope Urinary tract infection History of prior with SGA Surgical History History of endometrial ablation H/O dilation and curettage H/O gastric bypass History of cholecystectomy Family History Mother Cancer Other Diabetes Hypertension Social History Smoking Status: Never smoker second hand exposure: No alcohol intake: never substance use type: denies use counseling given: No current occupational status: employed Travel in the last 8 weeks: None household members: spouse and children housing: house 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 current occupational exposures/hazards: No caffeine: Yes special wilver needs: No agree to transfusion: Yes helmet use: No drive intox or ride w/ intox 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 water heater temp set < 120 deg: Yes working smoke detector in home: Yes fire extinguisher in home: Yes carbon monox detector in home: Yes firearms in home: No do you feel safe at home: Yes victim of physical abuse: No victim of emotional abuse: No victim of sexual abuse: No would you like helpful sources: No Have you lived/traveled outside [place] in past 30 days?: No Contact w/someone who lives/traveled outside US past 30 days?: No Exposure to someone with infectious disease in past 14 days?: No Do you have a fever (greater than 100.4 F or 38 C)?: No Have you tested positive for COVID-19: No Exposed to someone with COVID-19 in past 14 days?: No Do you have a sore throat?: No Do you have a cough?: No Do you have shortness of breath?: No Do you have a headache?: No Do you have any weakness?: No Are you experiencing any nausea/vomitting?: No Do you have any diarrhea?: No Are you experiencing any unusual bleeding?: No Do you have any muscle aches/pain?: No Do you have any abdominal pain?: No Are you experiencing loss of taste or smell?: No ROS Obtained: Yes All systems reviewed & no additional complaints except as documented Constitutional Constitutional: Denies chills and Denies fever(s) Eyes Eyes: Denies eye discharge ENT Ears, Nose, Mouth, and Throat: Denies dizziness, Denies otalgia and Denies sore throat Cardiovascular Cardiovascular: Denies chest pain Respiratory Respiratory: Denies shortness of breath, Denies chest congestion, Denies cough, Denies stridor and Denies wheezing Gastrointestinal Gastrointestingal: Denies nausea or vomiting Musculoskeletal Musculoskeletal: Reports system reviewed and no additional complaints, except as documented and Denies arthralgias Integumentary/Breasts Skin/Breast: Reports as per HPI, Reports redness and Reports wounds Neurologic Neurologic: Denies dizziness and Denies paresthesias Allergic/Immunologic Allergic/Immunologic: Denies wheezing Physical Exam General General appearance: alert and in no apparent distress Head Head exam: atraumatic, normocephalic and normal inspection Eye Eye exam: Present normal appearance, PERRL and EOMI ENT ENT exam: Present normal exam, normal oropharynx, mucous membranes moist, TM's normal bilaterally and normal external ear exam Neck Neck exam: Present normal inspection, full ROM and trachea midline; Absent meningismus or lymphadenopathy Chest Chest inspection: Present normal inspection and symmetric chest wall rise; Absent tenderness Respiratory Respiratory exam: Present normal lung sounds bilaterally; Absent respiratory distress Cardiovascular Cardiovascular exam: Present regular rate and normal rhythm; Absent JVD Abdominal Exam Abdominal exam: Present soft and normal bowel sounds; Absent distention, tenderness or guarding Extremities Exam Extremities exam: Present normal inspection, full ROM and normal capillary refill; Absent calf tenderness Back Exam Back exam: Present normal inspection; Absent tenderness Neurological Exam Neurological exam: Present alert and oriented X3 Psychiatric Psychiatric exam: Present normal affect and normal mood Skin Skin exam: Present erythema (on her inner left thigh, just above her knee, there is an area of erythema that measures 4 cm diameter, it has a smaller area of induration beneath it, there is a small open area in its center that has tannish drainage. a culture was obtained and sent to the lab. ) Lymphatic Lymphatic Findings: no adenopathy Medical Decision Making Medical Records Medical records reviewed: No I reviewed the patient's medical records. Screening: Per USPSTF and CDC recommendations, given the prevalence of disease in our region, it is our hospital?s policy to screen for HIV and viral Hepatitis for all patients aged 18 and over and those with ongoing risk factors. Asher Inquiry Pt receiving controlled substance: No Medical Decision Narrative: She denies that she is allergic to lidocaine. Procedures Risk/Benefits of Procedure(s) Were Explained: Yes Abscess I/D Site: lower extremity Side (if applicable): right Sedation/analgesia: none Local Anesthetic: lidocaine 1% Amount of anesthesia used (mL): 1 Technique: incised with #11 blade Amount of fluid expressed (mL): 10 Irrigation: No Packing used?: none (she adamantly refused for the wound to be packed. ) Complications: pain (she tolerated this well, but the procedure was stopped before all the drainage could be expressed per her request due to pain. )
[2024-10-25 14:50] VITALS: BP 129/76; PULSE 76; RESP 19; TEMP 36.7; O2SAT 100; BMI 33.5
[2024-10-25] MEDS: cefTRIAXone 1GM VIAL 1 GM IM (16:11)
[2024-10-25 16:14] VITALS: BP 129/76; PULSE 76; RESP 19; TEMP 36.7; O2SAT 100
== END 2024-10-25 16:26 | disposition home or self-care (01) ==
PROVIDERS: Emergency Provider Nurse Practitioner Family; PCP Nurse Practitioner
DX: L02.612 Cutaneous abscess of left foot (principal)
CPT/HCPCS: 10060; 87070; 87077; 87186; 87205; 96372; 99214; G0382; J0696

== ENCOUNTER 2024-10-30 10:14 | Outpatient (CLI) | payer OTHER, SELFPAY ==
[2024-10-30 10:38] LABS: Urine Pregnancy, HCG Qual. Negative (Negative)
[2024-10-30 10:40] LABS: Basophils % 0.8 % (0.1-2.0); Eosinophils # 0.1 K/mm3 (0.0-0.4); Eosinophils % 1.3 % (0.1-12.0); Hematocrit 42.4 % (37.0-47.0); Hemoglobin 13.4 g/dL (12.2-16.2); Lymphocytes # 1.4 K/mm3 (0.7-4.5); Lymphocytes % 27.1 % (10-50); Mean Corpuscular HGB Conc 31.6 g/dL (31.8-35.4); Mean Corpuscular Hemoglobin 27.5 pg (27.0-31.2); Mean Corpuscular Volume 87.1 fl (81-99); Mean Platelet Volume 11.6 fl (7.4-10.4); Monocytes # 0.3 K/mm3 (0.1-1.0); Monocytes % 6.1 % (1.7-9.3); Neutrophils # 3.4 K/mm3 (1.8-7.8); Neutrophils % 64.5 % (37.0-80.0); Platelet Count 261 K/mm3 (142-424); Red Blood Count 4.87 M/mm3 (4.20-5.40); Red Cell Distribution Width 12.4 % (11.5-17.5); White Blood Count 5.2 K/mm3 (4.8-10.8)
[2024-10-30 11:07] LABS: Chloride 107 mmol/L (98-107)
[2024-10-30 11:08] LABS: Potassium 4.2 mmoL/L (3.5-5.1); Sodium 140 mmol/L (136-145)
[2024-10-30 11:11] LABS: Anion Gap 11.2 mEq/L (5-15); Blood Urea Nitrogen 7 mg/dl (7-17); Carbon Dioxide 26 mmol/L (22.0-30.0); Estimated Glomerular Filt Rate 145 ml/min (>60); GFR (African American) 175 ML/MIN (>60); Glucose 88 mg/dl (74-100)
== END 2024-10-30 23:59 | disposition home or self-care (01) ==
LOC: LAB 10:15
PROVIDERS: PCP Nurse Practitioner; Visit Provider Surgery
DX: L02.415 Cutaneous abscess of right lower limb (principal)
CPT/HCPCS: 36415; 80048; 81025; 85025

== ENCOUNTER 2024-10-31 07:54 | Day surgery (SDC) | payer OTHER, SELFPAY ==
[2024-10-30 14:06] VITALS: BMI 35.6
[2024-10-31] VITALS (10 sets, daily range): BP systolic 122–137; BP diastolic 63–81; PULSE 77–91; RESP 16–18; TEMP 36.4–36.8; O2SAT 98–100
[2024-10-31] MEDS: 0.9 % SODIUM CHLORIDE 1000ML 1,000 ML 25 ML IV (08:27)
--- NOTE | 2024-10-31 08:36 | EXP.ANES.CKL ---
[facility] Disclaimer: The information contained in this section may have been updated after the patient was seen, as this information can be updated by other users. Medical History Staph infection Abscess of right thigh Cellulitis of right thigh Obesity Family history of breast cancer in mother Screening for malignant neoplasm of breast Migraine History of gastroesophageal reflux (GERD) Hemorrhoid Anxiety with depression History of anemia History of syncope Urinary tract infection History of prior with SGA Surgical History History of endometrial ablation H/O dilation and curettage H/O gastric bypass History of cholecystectomy Family History Mother Cancer Other Diabetes Hypertension Social History (Updated 10/31/24 @ 08:18 by Laura Mccabe RN) Smoking Status: Never smoker second hand exposure: No alcohol intake: never substance use type: denies use counseling given: No current occupational status: employed Travel in the last 8 weeks: None household members: spouse and children housing: house 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 current occupational exposures/hazards: No caffeine: Yes special wilver needs: No agree to transfusion: Yes helmet use: No drive intox or ride w/ intox 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 water heater temp set < 120 deg: Yes working smoke detector in home: Yes fire extinguisher in home: Yes carbon monox detector in home: Yes firearms in home: No do you feel safe at home: Yes victim of physical abuse: No victim of emotional abuse: No victim of sexual abuse: No would you like helpful sources: No Have you lived/traveled outside US in past 30 days?: No Contact w/someone who lives/traveled outside [place] past 30 days?: No Exposure to someone with infectious disease in past 14 days?: No Do you have a fever (greater than 100.4 F or 38 C)?: No Have you tested positive for COVID-19: Yes Exposed to someone with COVID-19 in past 14 days?: No Do you have a sore throat?: No Do you have a cough?: No Do you have any weakness?: No Are you experiencing any nausea/vomitting?: No Do you have any diarrhea?: No Are you experiencing any unusual bleeding?: No Do you have any muscle aches/pain?: No Do you have any abdominal pain?: No Are you experiencing loss of taste or smell?: No [facility] Anesthesia Checklist Patient Identification Patient Identification: Arm Band Structural Data Admitted From: Home Planned Operative Procedure/s: I&D Right Thigh Abscess Consent for Planned Operative Procedure(s) Verified: Yes Verified Documents: Surgical Consent and History and Physical NPO Status Verified Time NPO: 00:00 Additional verifications Anesthesia Reactions: No Hx Blood Transfusions: Yes Blood Transfusion Reaction: No Airway Assessment Mallampati Score:: Class II C-Spine Mobility Assessed: Yes TMJ Mobility Assessed: Yes Dentition: Good Dentition Neurological Assessment Level of Consciousness: Awake, Alert and Appropriate Anesthesia Plan Anesthesia Risk discussed: Yes Anesthesia Plan: Verified ASA Class: II Anesthesia Type: General
[2024-10-31] MEDS: CEFAZOLIN SODIUM 2 GM in 0.9 % SODIUM CHLORIDE 100 ML IV (08:51)
[2024-10-31] MEDS: LIDOCAINE 1% 20ML MDV 20 ML (09:03)
--- NOTE | 2024-10-31 09:15 | EXP.OP.NOTE ---
Date of procedure: 10/31/24 Pre-op Diagnosis:: Right medial thigh abscess Post-op Diagnosis:: Abscessed cyst -right medial thigh Procedure performed:: Incision and drainage/debridement of abscessed cyst from right medial thigh Surgeon:: Asif Schmidt MD Anesthesia: local and LMA Estimated blood loss (mL): 5 Operative findings:: Indurated nodule consistent with abscessed cyst Focal central necrosis of overlying skin margin/superficial subcutaneous tissue Operative note:: After informed consent was obtained the patient was taken to the operating room and placed in the supine position. General anesthesia with laryngeal mask airway was achieved. Her right medial thigh was prepped and draped in a sterile fashion. After infiltration with local anesthetic electrocautery was utilized to transect elliptically around the central necrotic tissue. An underlying indurated nodule consistent with abscessed cyst was excised in toto and the specimen was passed off for pathologic evaluation. Electrocautery was utilized to achieve hemostasis. The wound was packed with dry gauze. Dressings were applied and the patient was transferred to recovery in stable condition. Condition: stable Disposition: PACU Specimens:: Abscessed cyst right medial thigh Complications:: No immediate
--- NOTE | 2024-10-31 09:17 | P.PNANES_ITS ---
[facility] Anesthesia Record Part I Anesthesia Record I Intake, IV Amount: 100 Hydration: Adequate Estimated blood loss (mL): 5 Urine output (mL): 0 Blood Products used (#): none Blood Pressure: 124/63 SaO2: 98 Pulse Rate: 85 Airway Patency: Patent Respiratory Rate: 16 Temperature: 97.6 F Patient is:: Drowsy and Stable Stable to PACU at:: 09:16
--- NOTE | 2024-10-31 10:23 | ECG_ITS ---
APPROVED REPORT Exam: Resting ECG HR:82 bpm ECG Measurements Heart Rate 82 AXES VA 151 P 61 QRSd 81 QRS 25 QT 346 T 16 QTc 384 Conclusion SINUS RHYTHM NONSPECIFIC T-WAVE ABNORMALITY BORDERLINE ECG UNCONFIRMED REPORT Electronically signed by : Santi Aldana MD 10/31/2024 16:36:30
--- NOTE | 2024-10-31 10:44 | SUR.PHASEII ---
patient ready for discharge, patient c/o of chest discomfort with deep breath. Feeback, SET UP OPERATOR TOOL notified and EKG order with normal results. patient educated to return to ER if chest pain does not resolve or worsens
--- NOTE | 2024-10-31 10:46 | P.PNANES_ITS ---
[facility] Anesthesia Record Part II Anesthesia Record Part II Discharge Time: 09:45 Destination: Surgical Day Care (OP Surgery) PACU nurse assessment reviewed?: Yes Patient Condition:: Good Anesthesia Complications:: None Swallowing reflex intact?: Yes Airway Patency: Patent Cyanosis?: No Blood Pressure: 122/69 SaO2: 99 Respiratory Rate: 18 Pulse Rate: 78 Temperature: 97.8 F Mental Status: Alert & Oriented Pain level:: 0 Nausea and/or vomitting:: None Intake, IV Amount: 0 Hydration: Adequate
== END 2024-10-31 10:33 | disposition home or self-care (01) ==
PROVIDERS: PCP Nurse Practitioner; Visit Provider Surgery
PROC: (CPT 10060; principal; 2024-10-31 09:30)
DX: L02.415 Cutaneous abscess of right lower limb (principal)
CPT/HCPCS: 10060; 93005; 96374; J0690; J1100; J2250; J2405; J3010; J7030

== ENCOUNTER 2025-02-26 18:47 | Outpatient (CLI) | payer OTHER, SELFPAY | END 2025-02-26 23:59 | disposition home or self-care (01) | LOC: LAB.DROPOF 18:49 | PROVIDERS: PCP Nurse Practitioner; Visit Provider Nurse Practitioner | DX: J02.9 Acute pharyngitis, unspecified (principal) ==

== ENCOUNTER 2025-02-27 07:57 | Outpatient (CLI) | payer OTHER, SELFPAY ==
--- NOTE | 2025-02-27 08:00 | MM_ITS ---
PROCEDURE INFORMATION: Exam: MG Bilateral Screening 3D Mammography Exam date and time: 02/27/2025 8:01 AM Age: 29 years old Clinical indication: Screening exam TECHNIQUE: Imaging protocol: Bilateral Screening tomosynthesis and 2D mammography including computer-aided detection (CAD) when performed. COMPARISON: MG MM DIG SCREENING MAMM BI W/CAD 02/26/2024 4:10 PM FINDINGS: MAMMOGRAPHY: Breast composition: There are scattered areas of fibroglandular density. Mass: No suspicious masses. Architectural distortion: None. Calcifications: No suspicious calcifications. Asymmetric density: None. Skin thickening: None. Axillary adenopathy: None. IMPRESSION: No mammographic evidence of malignancy. Annual screening is recommended unless otherwise clinically indicated. ASSESSMENT: BI-RADS Category 1: Negative.
== END 2025-02-27 23:59 | disposition home or self-care (01) ==
LOC: RAD 07:58
PROVIDERS: PCP Nurse Practitioner; Visit Provider Obstetrics & Gynecology
DX: Z12.31 Encounter for screening mammogram for malignant neoplasm of breast (principal); R92.323 Mammographic fibroglandular density, bilateral breasts
CPT/HCPCS: 77063; 77067

== ENCOUNTER 2025-08-24 10:25 | Emergency (ER) | payer OTHER, SELFPAY ==
[2025-08-24] VITALS (7 sets, daily range): BP systolic 122–132; BP diastolic 70–87; PULSE 49–96; RESP 16; TEMP 36.9; O2SAT 97–99; BMI 38.2
--- OUTSIDE RECORDS SUMMARY | 2025-08-24 10:46 | XMS_ITS | Clinical Summary ---
Author Organization [facility] Address [address] [place] [address] Care Team Providers Care Deck Cadet Name Role Phone Vishal Hay MD Primary Care Provider [phone] Allergies Active Allergy Reactions Criticality Noted Date Comments Ferumoxytol Shortness Of Breath High 05/12/2022 Pt tolerates Venofer Nifedipine Shortness Of Breath,Swelling High 06/02/2022 Medications vitamin C (ASCORBIC ACID) 500 MG tablet Take 1 tablet by mouth Daily. Take with iron to help absorption 30 tablet 5 0 Active acetaminophen (TYLENOL) 325 MG tablet Take 2 tablets by mouth Every 4 (Four) Hours As Needed for Mild Pain . 0 Active cholecalciferol (VITAMIN D3) 10 MCG (400 UNIT) tablet Take 400 Units by mouth Daily. Active ferrous gluconate (FERGON) 324 MG tablet Take 1 tablet by mouth Daily. 2 Active GUMMY VITAMIN Chew 1 each 2 (Two) Times a Day. Active Active Problems Problem Noted Date Diagnosed Date Malabsorption due to intolerance, not elsewhere classified 05/23/2022 Iron adverse reaction 05/23/2022 Maternal anemia in , antepartum 020 Uterine contractions during 08/03/2020 04/28/2020 Pain of round ligament during 04/28/20 20 Iron deficiency anemia due to chronic blood loss 02/25/2020 History of cholecystectomy 02/23/2020 Abdominal pain, acute, epigastric 02/23/2020 Resolved Problems Problem Noted Date Diagnosed Date Resolved Date Normal labor 08/14/2020 08/15/2020 Epigastric pain 02/23/2020 08/15/2020 Symptomatic cholelithiasis 02/20/2020 0 04/28/2020 Second trimester 02/20/2020 1 10/15/2019 Family History Medical History Relation Name Comments Hypertension Father Diabetes Maternal Grandfather Diabetes Maternal Grandmother Breast cancer Mother Diabetes Mother Hyperlipidemia Mother Diabetes Paternal Grandfather Diabetes Paternal Grandmother Relation Name Status Comments Father Alive Maternal Grandfather Maternal Grandmother Mother Alive Paternal Grandfather Paternal Grandmother Social History Tobacco Use Types Packs/Day Years Used Date Smoking Tobacco: Former Cigarettes Q uit: 09/2011 Smokeless Tobacco: Never Tobacco Cessation:Counseling Given: No Alcohol Use Standard Drinks/Week Comments Never 0 (1 standard drink = 0.6 oz pur e alcohol) AUDIT-C Answer Date Recorded Q1: How often do you have a drink containing alc ohol? Never 08/14/2020 Average Number of Drinks Not on file 020 Frequency of Binge Drinking Not on file 07/27 [place] Depression Scale Answer Date Recorded [place] Depression Scale Total 2 08/15/2020 The thought of harming myself has occurred to me . Never 08/15/2020 Abuse Screen Answer Date Recorded Unsafe at Home or Work/School Not on file Feels Threatened by Someone? Not on file 05/2023 Does Anyone Keep You from Co ntacting Others or Doint Things Outside the Home? Not on file 07/03/2023 Physical Sign of Abuse Present Not on file 1 Housing Stability Answer Date Recorded Current Living Arrangements Not on file 05/2023 Potentially Unsafe Housing Conditions Not on anastasia e 07/03/2023 Family and Community Support Answer Davian e Recorded Help with Day-to-Day Activities Not on file 07/03/2023 Lonely or Isolated Not on file 07/03/2023 Employment Answer Date Recorded Do you want help finding or keeping work or a paul b? Not on file 07/03/2023 Disabilities Answer Date Recorded Concentrating, Remembering, or Making Decisions Difficulty Not on file 07/03/2023 Doing Errands Independently Difficulty Not on fi le 07/03/2023 Education Answer Date Recorded Help with school or training? Not on file Preferred Language Not on file 07/03/2023 Comments No Sex and Gender Information Value Date Recorded Sex Assigned at Not on file Legal Sex Female 10:43 AM EDT Gender Identity Not on file Sexual Orientation Not on file Last Filed Vital Signs Vital Sign Reading Time Taken Comments Blood Pressure 122/70 06/02/2022 10:27 AM EDT Pulse 94 05/19/2022 2:41 PM EDT Temperature 36.4 C (97.5 F) 05/19/2022 2:41 PM EDT Respiratory Rate 16 05/19/2022 2:41 PM EDT Oxygen Saturation 98% 05/19/2022 2:41 PM EDT Inhaled Oxygen Concentration - - Weight 85.5 kg (188 lb 6.4 oz) 06/02/2022 10:27 AM EDT Height 156.2 cm (5' 1.5 ) 06/02/2022 10:32 AM ED T Body Mass Index 35.02 06/02/2022 10:27 AM EDT Plan of Treatment Health Maintenance Due Date Last Done Comments Annual Gynecologic Pelvic an d Breast Exam 1994 TDAP/TD VACCINES (1 - Tdap) 2013 ANNUAL PHYSICAL 02/12/2020 INFLUENZA VACCINE 04/25/2025 HEPATITIS C SCREENING Completed 02/06/2020 Pneumococcal Vaccine 0-49 Aged Out No longer eligible based on patient's age to complete this topic Procedures Procedure Name Priority Date/Time Associated Diagnosis Comments HEPATITIS C ANTIBODY Routine 02/06/2020 11:44 AM EDT 10 weeks gestation of care, subsequent , first trimester from Last 3 Months or Most Recently Relevant to Health Maintenance Results * Hepatitis C Antibody (02/06/2020 11:44 AM EDT) Hepatitis C Ab Non-Reacti ve Non-Reacti ve 02/06/2020 11:38 PM EDT [facility] Blood Venipuncture / Unknown 02/06/2020 11:44 AM EDT 02/06/2020 11:45 AM EDT Narrative [facility] - 02/06/2020 11:38 PM EDT Results may be falsely decreased if patient taking Biotin. us Edna Sepulveda MD LAB BLOOD ORDERABLES Final Res ult [facility]
[address] [place] [address], from Last 3 Months or Most Recently Relevant to Health Maintenance Insurance [facility] Advance Directives * CPR (Attempt to Resuscitate) (Latest Code Status on File) Date Activated Date Inactivated Comments 08/15/2020 5:59 AM 08/16/2020 6:01 PM Question Answer Comments Code Status (Patient has no pulse and is not breathing): CPR (Attempt to Resuscitate) Medical Interventions (Patie nt has pulse or is breathing): Full * CPR (Attempt to Resuscitate) Date Activated Date Inactivated Comments 08/14/2020 8:29 PM 08/15/2020 5:59 AM Question Answer Comments Code Status (Patient has no pulse and is not breathing): CPR (Attempt to Resuscitate) Medical Interventions (Patie nt has pulse or is breathing): Full * CPR (Attempt to Resuscitate) Date Activated Date Inactivated Comments 02/23/2020 2:10 PM 02/25/2020 2:41 PM Question Answer Comments Code Status (Patient has no pulse and is not breathing): CPR (Attempt to Resuscitate) Medical Interventions (Patie nt has pulse or is breathing): Full Level Of Support Discussed With: Patient Care Teams Deck Cadet Relationship Specialty Start Date End Date Vishal Hay MD [address] [facility] [address] [place] [id number] PCP - General Family Medicine 02/06/20
--- OUTSIDE RECORDS SUMMARY | 2025-08-24 10:46 | XMS_ITS | Patient Health Record ---
Author Organization [facility] Address [address] [facility] [address] [place] [address] Care Team Providers Care Account Supervisor Name Role Phone Edna Sepulveda Unavailable [phone] Reason For Referral No Information Social History Social History Additional Details Category Social Info Options Details Miscellaneous: Sexually active: SEXUAL AC TIV: Current Caffeine: CAFFEINE USE: 1- 3 /day Problems Problem Type SNOMED Code ICD Code Onset Dates Problem Status W/U Status Risk Notes Problem Information temporarily unavailable 2 weeks follow-up (Z39.2) 09/16/20 20 Active confirmed Routine follow-up Plan Of Treatment No Information Medical (General) History Medical History History ICD Code BABYPHYSNAME: - ABORTIONS: 0 MENSTR FLOW: Mild Anxiety Obesity PCOS Urinary Tract Infections Yeast Infections SOCIAL HX: Patient has never smoked.; Patient has never used smokeless tobacco.; SOCIAL HX: Patient has never smoked.; Patient has never used smokeless tobacco.; obesity acid reflux Ov cysts PHENTERMINE HCL 37.5 MG ORAL TABLET Surgical History Surgery Date(Month/Year) bariatric sx
[2025-08-24 10:57] LABS: Hematocrit 39.2 % (37.0-47.0); Hemoglobin 12.9 g/dL (12.2-16.2); Mean Corpuscular HGB Conc 32.9 g/dL (31.8-35.4); Mean Corpuscular Hemoglobin 27.1 pg (27.0-31.2); Mean Corpuscular Volume 82.4 fl (81-99); Red Blood Count 4.76 M/mm3 (4.20-5.40); Red Cell Distribution Width-SD 39.2 fL; White Blood Count 6.4 K/mm3 (4.8-10.8)
[2025-08-24 10:58] LABS: Immature Granulocytes % 0.3 %; Nucleated Red Blood Cells % 0 %; Platelet Count 230 K/mm3 (142-424)
--- NOTE | 2025-08-24 11:01 | HMH.EDGENADL ---
Discharge Plan Disposition Patient Disposition: Home, Self-Care Prescriptions Prescriptions: New sumatriptan succinate [Imitrex] 50 mg tablet 50 mg PO Q2H PRN (Reason: migraine headache) Qty: 10 0RF Rx Instructions: do not exceed 4 doses per 24 hrs No Action bupropion HCl 150 mg tablet extended release 24 hr 150 mg PO DAILY Qty: 30 2RF amoxicillin 500 mg capsule 500 mg PO BID Qty: 20 0RF methylprednisolone 4 mg tablets,dose pack See Rx Instructions PO PER PKG DIR Qty: 21 0RF Rx Instructions: PO PER PKG DIR tirzepatide (weight loss) 7.5 mg/0.5 mL Pen Injector 7.5 mg SQ WEEKLY Referrals Follow up/Referrals: Wendy Rivas APRN [Primary Care Provider, Family Practice] - See instructions Activity Restrictions/Add. Instructions Additional Instructions/Restrictions: for prevention of headaches, try 100 mg Coenzyme Q and 400 mg vitamin b2 in the morning and 400 mg magnesium at night, otherwise, use imitrex as an abortive medication. for new neurologic deficits or worsening of headaches, return to the ed. please follow-up with pcp for chronic headache disorder managment Clinical Impressions Clinical Impression: Migraine Instructions Patient Instructions: DI for Migraine, DI for Headache Print Language Print Language: Palestinian Discharge ED Provider: Zackary Schwarz Adult HPI General Chief complaint: Headache Stated complaint: migraine Time Seen by Provider: 08/24/25 10:37 Mode of Arrival: Ambulatory Source of Information: Patient Description of Symptoms (Recalled from ER Triage Doc. by RN): Patient states she has had a headache and nausea that started yesterday. States she took 3x dual action tylenol/ibuprofen this morning at 0800 with no relief, states she took a flu/covid test at home this morning and it was negative. History of Present Illness HPI narrative: Patient is a 30 yo female with pmhx of migraines who presents with headache. she does not frequent prior headaches with similar character to current headache. states that she has previously needed migraine cocktails. describes onset of current headache as gradual and posterior. denies vision changes, numbness, tingling or focal weakness. does not an echo-sensation in her ears. notes genreally feeling weak. Related Data Home Medications ?Medication ?Instructions ?Recorded ?Confirmed tirzepatide (weight loss) 7.5 7.5 mg SQ WEEKLY 10/31/24 02/26/25 mg/0.5 mL subcutaneous pen injector Previous Rx's ?Medication ?Instructions ?Recorded bupropion HCl 150 mg 24 hr tablet, 150 mg PO DAILY #30 tabs 10/28/24 extended release amoxicillin 500 mg capsule 500 mg PO BID #20 caps 02/26/25 methylprednisolone 4 mg tablets in See Rx Instructions PO PER PKG DIR 02/26/25 a dose pack #21 tabs sumatriptan succinate 50 mg tablet 50 mg PO Q2H PRN migraine headache 08/24/25 (Imitrex) #10 tabs Allergies Allergy/AdvReac Type Severity Reaction Status Date / Time ferumoxytol Allergy Severe Difficulty Verified 02/26/25 08:32 Breathing procaine (From [place]OV[place]) Allergy Unknown mild Verified 02/26/25 08:32 swelling nifedipine Allergy Unknown Verified 02/26/25 08:32 allergy reaction [facility] Disclaimer: The information contained in this section may have been updated after the patient was seen, as this information can be updated by other users. Medical History Staph infection Obesity Family history of breast cancer in mother Screening for malignant neoplasm of breast Migraine History of gastroesophageal reflux (GERD) Hemorrhoid Anxiety with depression History of anemia History of syncope Urinary tract infection History of prior with SGA Surgical History History of endometrial ablation H/O dilation and curettage H/O gastric bypass History of cholecystectomy Family History Mother Cancer Other Diabetes Hypertension Social History Smoking Status: Never smoker second hand exposure: No alcohol intake: never substance use type: denies use counseling given: No current occupational status: employed Travel in the last 8 weeks?: None household members: spouse and children housing: house 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 current occupational exposures/hazards: No caffeine: Yes special wilver needs: No agree to transfusion: Yes helmet use: No drive intox or ride w/ intox jukebox route driver: No water heater temp set < 120 deg: Yes working smoke detector in home: Yes fire extinguisher in home: Yes carbon monox detector in home: Yes firearms in home: No do you feel safe at home: Yes victim of physical abuse: No victim of emotional abuse: No victim of sexual abuse: No would you like helpful sources: No Have you lived/traveled outside US in past 30 days?: No Contact w/someone who lives/traveled outside US past 30 days?: No Exposure to someone with infectious disease in past 14 days?: No Do you have a fever (greater than 100.4 F or 38 C)?: No Have you tested positive for COVID-19?: No Exposed to someone with COVID-19 in past 14 days?: No Do you have a sore throat?: No Do you have a cough?: No Do you have any weakness?: No Do you have any diarrhea?: No Are you experiencing any unusual bleeding?: No Do you have any muscle aches/pain?: No Do you have any abdominal pain?: No Are you experiencing loss of taste or smell?: No Other Medical History Have you received the Flu Vaccine for this season: No Have you received the Pneumonia Vaccine: No ROS Obtained: Yes All systems reviewed & no additional complaints except as documented Physical Exam General General appearance: alert Head Head exam: atraumatic, normocephalic and normal inspection Eye Eye exam: Present normal appearance ENT ENT exam: Present normal exam Neck Neck exam: Present normal inspection Chest Chest inspection: Present normal inspection Respiratory Respiratory exam: Present other (normal effort on room air) Cardiovascular Cardiovascular exam: Present regular rate Abdominal Exam Abdominal exam: Present soft Extremities Exam Extremities exam: Present normal inspection Neurological Exam Neurological exam: Present alert, oriented X3 and other (no focal deficit ) Psychiatric Psychiatric exam: Present normal affect and normal mood Medical Decision Making Medical Records Medical records reviewed: Yes I reviewed the patient's medical records. Screening: Per USPSTF and CDC recommendations, given the prevalence of disease in our region, it is our hospital?s policy to screen for HIV and viral Hepatitis for all patients aged 18 and over and those with ongoing risk factors. Asher Inquiry Pt receiving controlled substance: No Vital Signs: 08/24/25 10:32 08/24/25 10:33 08/24/25 11:00 Temperature 98.4 F Temperature Source Oral Pulse Rate 94 H 96 H Pulse Rate [Right Brachial] 86 Respiratory Rate 16 Blood Pressure 124/83 132/87 Blood Pressure [Right Arm] 124/83 Blood Pressure Mean [Right Arm] 96 02 Sat by Pulse Oximetry 99 98 97 Oxygen Delivery Method Room Air Room Air Room Air 08/24/25 11:29 08/24/25 12:04 08/24/25 12:31 Temperature Temperature Source Pulse Rate 49 L 89 88 Pulse Rate [Right Brachial] Respiratory Rate Blood Pressure 126/70 122/70 189/113 H Blood Pressure [Right Arm] Blood Pressure Mean [Right Arm] 02 Sat by Pulse Oximetry 98 97 98 Oxygen Delivery Method Room Air Room Air Room Air Lab Data Lab results reviewed: Yes I reviewed the patient's lab results. Lab Results 08/24/25 10:40: WBC 6.4, RBC 4.76, Hgb 12.9, Hct 39.2, MCV 82.4, MCH 27.1, MCHC 32.9, RDW 13.1, Plt Count 230, MPV 11.3 H, Neut % (Auto) 70.6, Lymph % (Auto) 19.0, [place] % (Auto) 8.2, Eos % (Auto) 1.4, Baso % (Auto) 0.5, Neut # (Auto) 4.5, Lymph # (Auto) 1.2, [place] # (Auto) 0.5, Eos # (Auto) 0.1, Baso # (Auto) 0.0, Sodium 134 L, Potassium 4.1, Chloride 106, Carbon Dioxide 23, Anion Gap 9.1, BUN 6 L, Creatinine 0.60, Estimated Creat Clear 203, Estimated GFR 117, Est GFR ( Amer) 141, Glucose 85, Calcium 9.2, Total Bilirubin 1.9 H, AST 22, ALT 19, Alkaline Phosphatase 82, Total Protein 7.7, Albumin 4.4, Globulin 3.3 H, Albumin/Globulin Ratio 1.3 08/24/25 10:40 08/24/25 10:40 Orders (Tests/Meds): ED MEDICATIONS Discontinued Medications Generic Name Dose Route Start Last Admin Trade Name Freq PRN Reason Stop Dose Admin Diphenhydramine HCl 25 mg 08/24/25 10:47 08/24/25 11:04 Diphenhydramine 50mg/Ml Vial IV 08/24/25 10:48 25 mg ONCE ONE Administration Lactated Ringer's 500 mls @ 999 mls/hr 08/24/25 10:47 08/24/25 11:44 Lactated Ringer's 1000 Ml Bag IV 08/24/25 11:17 Infused .Q31M ONE Infusion Ketorolac Tromethamine 15 mg 08/24/25 10:47 08/24/25 11:04 Ketorolac 15mg/Ml Vial IV 08/24/25 10:48 15 mg ONCE ONE Administration Ketorolac Tromethamine 15 mg 08/24/25 12:04 08/24/25 12:20 Ketorolac 15mg/Ml Vial IV 08/24/25 12:05 15 mg ONCE ONE Administration Prochlorperazine Edisylate 10 mg 08/24/25 10:47 08/24/25 11:04 Prochlorperazine 10mg/2ml Vial IV 08/24/25 10:48 10 mg ONCE ONE Administration ORDERS Category Date Time Status CBC w/Auto Diff [Complete Blood Count Auto Diff] Stat Lab 08/24/25 10:40 Completed CMP [Comprehensive Metabolic Panel] Stat Lab 08/24/25 10:40 Completed Medical Decision Narrative: Patient is a 30 yo female presenting with gradual onset headache. history of headaches of similar character without focal neurologic deficit. Considered CT head, but given history and physical exam felt risks outweighed benefits at this time. given migraine coktail consisting of toradol x2, compazine, benadryl, and LR 1 L with resolution of both headache and the echo sensation in her ears, reassuring for diagnosis of migraine. patient felt comfortable with discahrge that this time, suggested trial of supplemenation of coeq, vitamin b2, and mg for rao prevention as well as prescribed imitrex as abortive medication. encouraged pcp fu for further garcia and mgmt of rao disorder. Critical Care Critical Care Time Critical Care Time: No
[2025-08-24 11:04] LABS: Alanine Aminotransferase 19 U/L (12-78); Albumin Level 4.4 g/dl (3.5-5.0); Albumin/Globulin Ratio 1.3 (1.1-1.8); Alkaline Phosphatase 82 U/L (38-126); Anion Gap 9.1 mEq/L (5-15); Aspartate Amino Transferase 22 U/L (14-36); Bilirubin,Total 1.9 mg/dl (0.2-1.3); Blood Urea Nitrogen 6 mg/dl (7-17); Calcium 9.2 mg/dl (8.4-10.2); Carbon Dioxide 23 mmol/L (22.0-30.0); Chloride 106 mmol/L (98-107); Creatinine Clearance Estimated 203 mL/min (50-200); Creatinine,Serum 0.60 mg/dl (0.52-1.04); Estimated Glomerular Filt Rate 117 ml/min (>60); GFR (African American) 141 ML/MIN (>60); Globulin 3.3 g/dL (1.3-3.2); Glucose 85 mg/dl (74-100); Potassium 4.1 mmoL/L (3.5-5.1); Sodium 134 mmol/L (136-145); Total Protein,Serum 7.7 g/dl (6.3-8.2)
[2025-08-24] MEDS: KETOROLAC 15MG/ML VIAL 15 MG IV ×2 (11:04→12:20)
[2025-08-24] MEDS: PROCHLORPERAZINE 10MG/2ML VIAL 10 MG IV (11:04)
[2025-08-24] MEDS: LACTATED RINGERS 1000ML 500 ML 999 ML IV (11:05)
== END 2025-08-24 13:12 | disposition home or self-care (01) ==
PROVIDERS: Emergency Provider Student in an Organized Health Care Education/Training Program; PCP Nurse Practitioner
DX: G43.909 Migraine, unspecified, not intractable, without status migrainosus (principal)
CPT/HCPCS: 80053; 85025; 96374; 96375; 96376; 99285; J0780; J1200; J1885; J7120